=== PATIENT | male | born 1965 | race Caucasian/White ===

== ENCOUNTER 2024-04-04 10:53 | Inpatient (IN) ==
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
[2024-04-04 11:41] LABS: Basophils # (auto) 0.02 K/uL (0.00-0.20); Basophils % (auto) 0.2 %; Eosinophils # (auto) 0.09 K/uL (0.00-0.50); Eosinophils % (auto) 0.9 %; Hematocrit (blood only) 41.8 % (42.0-52.0); Hemoglobin 13.8 g/dl (14.0-18.0); Immature Granulocytes # (auto) 0.05 K/uL (0.01-0.20); Immature Granulocytes % (auto) 0.5 %; Lymphocytes # (auto) 0.99 K/uL (1.20-3.40); Lymphocytes % (auto) 9.9 %; Mean Corpuscular Hemoglobin 30.4 pg (25.0-34.0); Mean Corpuscular Volume 92.1 fL (80.0-100.0); Mean Platelet Volume 8.8 fL (9.4-12.4); Monocytes # (auto) 0.55 K/uL (0.11-0.59); Monocytes % (auto) 5.5 %; Neutrophils # (auto) 8.26 K/uL (1.40-6.50); Platelet Count 278 K/uL (130-400); RDW Coefficient of Variation 12.7 % (11.5-14.5); RDW Standard Deviation 42.8 fL (36.4-46.3); Red Blood Count 4.54 M/uL (4.70-6.10); White Blood Count 9.96 K/ul (4.8-10.8)
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
[2024-04-04 12:03] LABS: Alanine Aminotransferase 38 U/L (7-52); Albumin Globulin Ratio 1.8 (0.9-2); Albumin Level 4.1 gm/dl (3.4-5.0); Alkaline Phosphatase 78 U/L (34-104); Anion Gap 6 (3-11); Aspartate Aminotransferase 32 U/L (13-39); BUN Creatinine Ratio 25.3 (10-20); Bilirubin,Total 0.8 mg/dl (0.2-1.0); Blood Urea Nitrogen 19 mg/dl (6-23); Calcium 8.7 mg/dl (8.6-10.3); Carbon Dioxide 27 mmol/L (21-32); Chloride 108 mmol/L (98-107); Globulin 2.3 gm/dl (2.5-4.0); Glucose 95 mg/dl (70-99(Fasting)); Potassium 4.1 mmol/L (3.5-5.1); Sodium 141 mmol/L (136-145); Total Protein 6.4 gm/dl (6.0-8.3)
[2024-04-04] MEDS: DIPHTHER/TETAN/PERTUS Vaccine (Tdap, Adol/Adult) 0.5mL IM ONE (12:03)
[2024-04-04] MEDS: ceFAZolin 3000MG 3,000 MG/72.5 ML BAG IV STA (12:51)
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
[2024-04-04] MEDS ORDERED: MIDAZOLAM HCL 1 MG/ML 2ML VIAL ONE (13:38)
[2024-04-04] MEDS ORDERED: LIDOCAINE 2% 20 MG/ML 5 ML SYR IV ONE (13:38)
[2024-04-04] MEDS ORDERED: fentaNYL citrate PF 100 MCG/2 ML VIAL ONE (13:38)
[2024-04-04] MEDS ORDERED: PROPOFOL IV EMULSION 10 MG/ML 20 ML VIAL IV ONE (13:38)
[2024-04-04] MEDS ORDERED: SUCCINYLCHOLINE CHLORIDE 20 MG/ML 10 ML VIAL IV ONE (13:39)
--- NOTE | 2024-04-04 13:52 | Anesthesiology Consultation ---
Date of Service April 04, 2024 Assessment & Plan ASA ASA2E Proposed Anesthesia Anesthesia Type: General Risk / Benefits Reviewed With: PT / POA / Parent / Guardian, Accepts Plan and Informed Consent Obtained History Surgery Operation Date: 04/04/24 12:55 Proposed Procedures p Incision and Drainage Right Foot, - Steve Santos MD s Possible Toe Amputation - Steve Santos MD Height/Weight Height: 5 ft 10 in Weight: 106.7 kg Allergies Allergy/AdvReac Type Severity Reaction Status Date / Time No Known Drug Allergies Allergy Verified 03/24/24 07:47 Medications Home Medications Medication Instructions Recorded Confirmed Last Taken atorvastatin 10 mg tablet (Lipitor) 10 mg PO DAILY 03/24/24 03/24/24 Unknown NPO Date Last Intake of Fluids: 04/04/24 Time Last Intake of Fluids: 07:30 Date Last Intake of Solids: 04/04/24 Time Last Intake of Solids: 07:30 Past Medical History Medical History (Updated 04/04/24 @ 13:12 by Steve Santos MD) Rotator cuff arthropathy Thoracic ascending aortic aneurysm Hyperlipidemia Exercise / Class Metabolic Activity II 4-5 Yardwork/Stairs/Walk up hill Past Family History Family History (Updated 03/24/24 @ 08:24 by Faiza Robbins RN) Father , Passed age 62 Lung cancer, Onset Age: 60 Radiation Therapy Mother Lung cancer, Onset Age: 63 Chemotherapy, Radiation Therapy Sister No problems noted. Sister No problems noted. Son No problems noted. Son No problems noted. Son No problems noted. Past Surgical History Surgical History (Updated 03/24/24 @ 08:19 by Faiza Robbins RN) History of prostate biopsy (02/16/24) History of colonoscopy (06/28/18) Past Anesthesia History No Hx of Anesthesia Complications and No Family Hx of Anesthesia Complications History of PONV No Hx of PONV and No Hx of Motion Sickness Social History Smoking Status: Never smoker Do You Dip or Chew Tobacco: Yes (Started 14 to current, switched to pouches) Hx Alcohol Use: Yes Hx Substance Use: No Physical Exam Vital Signs Last Vital Signs Temp 36.6 C 04/04/24 11:07 Pulse 71 04/04/24 13:41 Resp 19 04/04/24 13:41 BP 151/83 H 04/04/24 13:41 Pulse Ox 97 04/04/24 13:41 O2 Del Method Room Air 04/04/24 13:41 O2 Flow Rate 97 04/04/24 11:19 Constitutional no acute distress ENMT Mouth: no dentition abnormality Thyromental Distance: > or= 3.5 Finger Breadths Mallampati Class: II Neck normal visual inspection Respiratory normal respiratory effort; no respiratory distress Auscultation: lungs clear to auscultation bilaterally Cardiovascular Rate/Rhythm: regular rate and regular rhythm Heart Sounds: no murmur Musculoskeletal Spine: normal cervical ROM Psychiatric Orientation: alert and oriented x 3 Testing Laboratory Results 04/04/24 11:15 04/04/24 11:15 Day of Procedure Evaluation. Date of Surgery April 04, 2024 Height/Weight Height: 5 ft 10 in Weight: 106.7 kg Vital Signs Last Vital Signs Temp 36.6 C 04/04/24 11:07 Pulse 71 04/04/24 13:41 Resp 19 04/04/24 13:41 BP 151/83 H 04/04/24 13:41 Pulse Ox 97 04/04/24 13:41 O2 Del Method Room Air 04/04/24 13:41 O2 Flow Rate 97 04/04/24 11:19 Allergies Allergy/AdvReac Type Severity Reaction Status Date / Time No Known Drug Allergies Allergy Verified 03/24/24 07:47 Medications Home Medications Medication Instructions Recorded Confirmed Last Taken atorvastatin 10 mg tablet (Lipitor) 10 mg PO DAILY 03/24/24 03/24/24 Unknown Past Anesthesia History No Hx of Anesthesia Complications and No Family Hx of Anesthesia Complications History of PONV No Hx of PONV and No Hx of Motion Sickness NPO Date Last Intake of Fluids: 04/04/24 Time Last Intake of Fluids: 07:30 Date Last Intake of Solids: 04/04/24 Time Last Intake of Solids: 07:30 Home Medications Home Medications Medication Instructions Recorded Confirmed Last Taken atorvastatin 10 mg tablet (Lipitor) 10 mg PO DAILY 03/24/24 03/24/24 Unknown Exercise / Class Metabolic Activity Metabolic Activity: II 4-5 Yardwork/Stairs/Walk up hill Physical Exam Constitutional: no acute distress Mouth: no dentition abnormality Thyromental Distance: > or= 3.5 Finger Breadths Mallampati Class: II Neck: + visual inspection normal Respiratory: + respiratory effort normal and + clear to auscultation bilaterally; no respiratory distress Cardiovascular: + regular rate and + regular rhythm; no murmur Musculoskeletal: no limited cervical ROM Psychiatric: + alert and + oriented x 3 ASA ASA2E Proposed Anesthesia Proposed Anesthesia: General Risk / Benefits Reviewed With: PT / POA / Parent / Guardian, Accepts Plan and Informed Consent Obtained
[2024-04-04] MEDS ORDERED: ePHEDrine sulfate 50 MG/ML AMP IV PRN (14:16)
[2024-04-04] MEDS ORDERED: DROPERIDOL 5 MG/2 ML VIAL IV PRN (14:16)
[2024-04-04] MEDS ORDERED: ATROPINE SULFATE 0.1 MG/ML 10ML SYR IV PRN (14:16)
[2024-04-04] MEDS ORDERED: HYDROmorphone INJ 2 MG/ML SYR/VIAL IV PRN (14:16)
[2024-04-04] MEDS ORDERED: ONDANSETRON INJ 2 MG/ML 2 ML VIAL IV PRN ×2 (14:16→16:52)
[2024-04-04] MEDS ORDERED: ceFAZolin 330 MG/ML 1 GM VIAL ONE (14:56)
[2024-04-04] MEDS: ceFAZolin 1000MG 1,000 MG/7.5 ML SYR IV ONE (15:00)
[2024-04-04] MEDS ORDERED: HYDROmorphone INJ 2 MG/ML SYR/VIAL ONE (15:01)
[2024-04-04] MEDS ORDERED: ONDANSETRON INJ 2 MG/ML 2 ML VIAL ONE (15:19)
[2024-04-04] MEDS: BUPIVACAINE/EPINEPHRINE 0.5% MPF 1:200,000 30 ML VIAL ONE (15:23)
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
--- NOTE | 2024-04-04 16:30 | Anesthesiology Progress Note ---
Date of Service April 04, 2024 Anesthesia Post Procedure Vital Signs Vital Signs: Temp Pulse Pulse Resp BP BP Pulse Ox 04/04/24 16:25 68 14 117/71 93 04/04/24 16:15 69 17 134/76 94 04/04/24 16:05 36.7 C 70 21 113/67 94 04/04/24 15:55 74 17 146/91 H 96 04/04/24 15:45 76 17 145/84 H 98 04/04/24 15:38 36.0 C L 70 12 129/72 91 04/04/24 14:06 36.7 C 70 17 123/81 97 04/04/24 13:41 71 19 151/83 H 97 04/04/24 12:30 74 19 162/98 H 98 04/04/24 12:26 73 04/04/24 12:18 71 18 144/94 H 97 04/04/24 12:09 74 16 147/96 H 98 04/04/24 11:20 98 04/04/24 11:19 82 20 160/90 H 97 04/04/24 11:19 97 04/04/24 11:18 74 20 160/90 H 98 04/04/24 11:07 36.6 C 78 18 163/100 H 97 O2 Del Method O2 Flow Rate 04/04/24 16:25 Room Air 04/04/24 16:15 Room Air 04/04/24 16:05 Room Air 04/04/24 15:55 Nasal Cannula 2 04/04/24 15:45 Nasal Cannula 2 04/04/24 15:38 Nasal Cannula 04/04/24 14:06 Room Air 04/04/24 13:41 Room Air 04/04/24 12:30 Room Air 04/04/24 12:26 04/04/24 12:18 Room Air 04/04/24 12:09 Room Air 04/04/24 11:20 Room Air 04/04/24 11:19 Room Air 97 04/04/24 11:19 Room Air 04/04/24 11:18 Room Air 04/04/24 11:07 Room Air Pain Intensity Right Foot: Pain Intensity: 1 Transfer of Care Handoff Completed per policy Notes Mental Status: alert / awake / arousable Patient Amnestic to Procedure: Yes Nausea / Vomiting: adequately controlled Pain: adequately controlled Airway Patency, RR, SpO2: stable & adequate BP & HR: stable & adequate Hydration State: stable & adequate Anesthetic Complications: no major complications apparent and Pt Satisfied with anesthetic care
[2024-04-04] MEDS ORDERED: HYDROmorphone INJ 0.5 MG/0.5 ML SYR IV PRN (16:52)
[2024-04-04] MEDS ORDERED: METOCLOPRAMIDE HCL INJ 5 MG/ML 2 ML VIAL IV PRN (16:52)
[2024-04-04] MEDS ORDERED: bisacodyL 10 MG SUPP PR PRN (16:52)
[2024-04-04] MEDS ORDERED: diphenhydrAMINE Capsule 25 MG CAP PO PRN (16:52)
[2024-04-04] MEDS ORDERED: traMADol HCL 50 MG TABLET PO PRN (16:52)
[2024-04-04] MEDS ORDERED: TAMSULOSIN HCL 0.4 MG CAP PO PRN (16:52)
[2024-04-04] MEDS ORDERED: NALOXONE HCL 0.4 MG/1 ML VIAL/CARP IV PRN (16:52)
[2024-04-04] MEDS ORDERED: MAGNESIUM HYDROXIDE SUSP 30 ML UDC PO PRN (16:52)
[2024-04-04] MEDS: KETOROLAC 30 MG/ML VIAL IV SCH (17:06)
[2024-04-04] MEDS: BACITRACIN OINT 14 GM TUBE ONE (18:02)
[2024-04-04] MEDS: ASPIRIN 81 MG ECTAB PO SCH (20:41)
[2024-04-04] MEDS: DOCUSATE SODIUM 100 MG CAP PO SCH (20:42)
[2024-04-04] MEDS: SENNA 8.6 MG TAB PO SCH (20:43)
--- OUTSIDE RECORDS SUMMARY | 2024-04-04 21:31 | External Medical Summary | Summary of Care ---
Author Name Unknown Organization [facility] Address [address] [place] [address] Phone [phone] Care Team Providers Care Board Certified Music Therapist Name Role Phone Jolanta Morris MD Primary Care Provider [phone] Reason for Referral * Evaluate & Treat - Unlimited Visits (Within 10 days (routine)) - Authorized Specialty Diagnoses / Procedures Referred By Contac t Referred To Contact Radiation Oncology Diagnoses Prostate cancer (HCC) Monica Osei MD [address] [address] Referral ID Status Reason Start Date Expiration Date Visits Requested Visits Authorized [id number] Authorized Specialty Services Required 03/09/[phone] Question Answer Referral Priority Within 10 days (routine) Where should this appointment be scheduled? [facility] Comments New diagnosis of [place] 4+3 CAP, PSA 16 Reason for Visit * Reason Comments Follow Up PSMA results (03/03) . Encounter Details Date Type Department Care Team (Late st Contact Info) Description 03/09/2024 11:30 AM EST Office Visit Urology, [facility] [address] [facility] [address] [id number] Monica Osei MD [address] [id number] Prostate cancer (HCC)*; Elevated prostate specific antigen (PSA) Allergies No known active allergiesdocumented as of this encounter (statuses as of 03/10/2024) Medications Medication Sig Dispensed Refills Start Date End Date Status Triamcinolone Acetonide 0.1 % External Cream (Aristocort)Indic ations:Rash and nonspecific skin eruption Apply topically to affected area 2 times a day. To affected area. 60 g 5 07/28/2022 Active Additional Information Patient not taking.Reported on 03/09/2024 Atorvastatin Calcium 10 MG Oral Tablet (Lipitor) Take 1 Tablet by mouth in the morning. 30 Tablet 5 09/21/2023 Active Ciprofloxacin HCl 500 MG Oral Tablet (Cipro) Take 1 Tablet by mouth in the morning and 1 Tablet before bedtime. Start day prior to biopsy.. 6 Tablet 02/11/2024 Discontinued documented as of this encounter (statuses as of 03/10/2024) Active Problems Problem Noted Date Diagnosed Date Prostate cancer 03/09/2024 Asymptomatic varicose veins of both lower extrem ities 01/01/2024 Class 1 obesity due to exces s calories with serious comorbidity and body mass index (BMI) of 31.0 to 31.9 in adult 09/11/2023 Rotator cuff arthropathy of both shoulders 09/10 Thoracic ascending aortic aneurysm 09/02/2021 H/O dysplastic nevus 09/06/2020 Overview: Mildly atypical nevus (R central upper back 09/2020) Mixed hyperlipidemia 05/09/2019 documented as of this encounter (statuses as of 03/10/2024) Resolved Problems Problem Noted Date Diagnosed Date Resolved Date Aortic root enlargement 10/13/2018 04/2 12/2020 documented as of this encounter (statuses as of 03/10/2024) Immunizations Name Administration Dates Next Due Seasonal Influenza, PF, 6 M & above, IM , (FluLaval or Fluzone) 05/09/2019 TDAP (age 10 and older)(Boostrix) 05/05/2018 Zoster Vaccine Recombinant (Shingrix) 07/26/2019 ,05/09/2019 documented as of this encounter Social History Tobacco Use Types Packs/Day Years Used Date Smoking Tobacco: Never Smokeless Tobacco: Current Chew Alcohol Use Standard Drinks/Week Comments Yes 0 (1 standard drink = 0.6 oz pur e alcohol) beer approx 3 times per week AUDIT-C Answer Date Recorded Frequency of Alcohol Consumption 2-3 times a wee k 05/09/2019 Average Number of Drinks 3 or 4 020 Frequency of Binge Drinking Never 10/2019 PHQ-2 Answer Date Recorded PHQ Adult Total Score 0 09/02/2021 Hunger Vital Sign Answer Date Recorded Worried About Running Out of Food in the Last Ye ar Never true 10/07/2019 Ran Out of Food in the Last Year Never true 10/07/2019 Utilities Answer Date Recorded Do you have trouble paying y our heating, water, or electric bill? (Adult - for ages 18 years and over) Not on file 10/20/2023 Is your family able to pay t he heat, water, or electric bill? (Household - for ages 0-17 years) Not on file 10/20/2023 Does your family have access to good internet? (Household - for ages 0-17 years) Not on file 10/20/2023 Social Connections Answer Date Recorded How often do you feel lonely or isolated from those around you? (Adult - for ages 18 years and over) Not on file 10/20/2023 Sex and Gender Information Value Date Recorded Sex Assigned at Male 09/15/2018 2:54 PM EDT Gender Identity Male 09/15/2018 2:54 PM EDT Sexual Orientation Straight 09/15/2018 2: 54 PM EDT Job Start Date Occupation Industry Not on file Not on file Not on file documented as of this encounter Progress Notes * Monica Osei MD - 03/09/2024 11:42 AM EST Images from the original note were not included. [id number] PCP: [place] [address] [phone] Anthony Beebe is a 58 year old male, who presents for discussion of his prostate biopsy pathology and imaging studies. Patient's past notes reviewed. Previous prostate MRI suggested a PI-RADS 5 lesion. He is here with his sister and [id number]. Patient is somewhat anxious regarding his difficulties. Prostate cancer: Patient is being seen for evaluation of an elevated PSA. Previous evaluation includes referral to Urology. Patient has been on no medication. He reports postvoid dribbling, slow stream. Denies nocturia. Prostate MRI Feb 2024: IMPRESSION Tumor (PI-RADS 5) within the posterolateral peripheral zone of the entire right side of the gland. Extraprostatic extension is seen along the lateral aspect of the right mid gland and right base withextension into the right seminal vesicle PSA Results: Lab Results Component Value Date/Time PSA - [facility] 16.39 (H) 01/01/2024 08:32 AM PSMA scan February 2024: IMPRESSION 1. Focal uptake in the right posterior prostate apex consistent with biopsy- proven malignancy. 2. No evidence of metastatic disease. Prostate biopsy Feb 2024: Final Diagnosis Prostate Biopsy Part Location Core # Core (cm) Diagnosis [place] Grade Group PN inv % [employer] A Left base 2 2.6 Benign prostatic tissue B Left mid 3 2.7 Benign prostatic tissue C Left apex 4 3.1 Atypical small acinar proliferation D Right base 3 3.9 Prostatic adenocarcinoma involving 3 of 3 cores 4+3=7 (4=80%) 3 + 70%, 70%, 20% E Right mid 3 4.2 Prostatic adenocarcinoma involving 3 of 3 cores 4+3=7 (4=70%) 3 - 90%, 50%, 40% F Right apex 3 3.1 Prostatic adenocarcinoma involving 2 of 3 cores 3+4=7 (4=30%) 2 - 30%, 20% CORES with CARCINOMA = Current Outpatient Medications Medication Sig Dispense Refill Atorvastatin Calcium 10 MG Oral Tablet (Lipitor) Take 1 Tablet by mouth in the morning. 30 Tablet 5 Triamcinolone Acetonide 0.1 % External Cream (Aristocort) Apply topically to affected area 2 times a day. To affected area. (Patient not taking: Reported on 03/09/2024) 60 g 5 No current facility-administered medications for this visit. Review of patient's allergies indicates: No Known Allergies Social History: Social History Tobacco Use Smoking status: Never Smokeless tobacco: Current Types: Chew Substance Use Topics Alcohol use: Yes Comment: beer approx 3 times per week Vaping/E-Cigarette Use Vaping/E-Cigarette Substances Vaping/E-Cigarette Devices Family History Problem Relation Name Age of Onset Lung cancer Mother Hypertension Mother COPD Mother Heart disease Mother Lung cancer Father COPD Sister No Known Problems Sister Colon cancer Grandfather (Paternal) Past Surgical History: Procedure Laterality Date COLONOSCOPY, DIAGNOSTIC (RECTUM) 06/28/2018 diverticulosis, repeat 10 yrs/COLONOSCOPY FLEXIBLE PROXIMAL DIAGNOSTIC performed by Wallace Shine MD at [facility] Past Medical History: Diagnosis Date Aortic root enlargement (HCC) 10/13/2018 Patient Active Problem List Diagnosis Mixed hyperlipidemia H/O dysplastic nevus Thoracic ascending aortic aneurysm (HCC) Class 1 obesity due to excess calories with serious comorbidity and body mass index (BMI) of 31.0 to 31.9 in adult Rotator cuff arthropathy of both shoulders Asymptomatic varicose veins of both lower extremities Prostate cancer (HCC) Constitutional: (-) fever and (-) chills Eyes: (-) decreased vision Male : See HPI Musculoskeletal: (+) shoulder pain/problems Psychiatry: (+) anxiousness Physical Exam Nursing note reviewed. Constitutional: General: He is not in acute distress. Appearance: Normal appearance. He is not toxic-appearing. HENT: Head: Normocephalic and atraumatic. Right Ear: External ear normal. Left Ear: External ear normal. Nose: Nose normal. Mouth/Throat: Mouth: Mucous membranes are moist. Cardiovascular: Pulses: Normal pulses. Pulmonary: Effort: Pulmonary effort is normal. Abdominal: Palpations: Abdomen is soft. Tenderness: There is no abdominal tenderness. Musculoskeletal: Cervical back: Normal range of motion and neck supple. Lymphadenopathy: Cervical: No cervical adenopathy. Skin: Coloration: Skin is not cyanotic or pale. Neurological: Mental Status: He is alert and oriented to person, place, and time. Psychiatric: Attention and Perception: Attention normal. Mood and Affect: Mood and affect normal. Impression/Plan: 58-year-old male with cT3b (MRI) Ol[place] 4+3 CAP, pre-treatment PSA of 16. Lengthy discussion held with patient and patient's family today regarding his diagnosis of prostatecancer. [place] grading system, staging, need for imaging and pathophysiology of prostate cancer reviewed. Risks and benefits of various treatment modalities including active surveillance, radical prostatectomy including robotic and open prostatectomy, and radiation treatment modalities including external beam radiation therapy and brachytherapy implant are reviewed. Questions are answered and patient is guided toward sources of information which might be helpful. NCCN guidelines reviewed at length. 75 minutes spent in [id number] discussion, guideline review, charting review and documentation over the course of this business day. I think the patient would likely benefit from radical prostatectomy with the ability to proceed with salvage radiation therapy should there be residual disease. Will arrange for Radiation Oncology consultation for further discussion. Will see 6-8 weeks time for repeat discussion of his care. Patient can contact us with any further questions in the interim. Above content is personally reviewed. Patient vocalizes good understanding of the treatment plan. Monica Osei MD 11:42 AM 03/09/2024 documented in this encounter Nursing Notes * Deysi Suero MED ASSIST - 03/09/2024 11:24 AM EST Chief Complaint Patient presents with Follow Up PSMA results (03/03). Verified patient. documented in this encounter Miscellaneous Notes * Addendum Note - Monica Osei MD - 03/10/2024 9:31 AM ESTAddended by: MONICA OSEI on: 03/10/2024 09:31 AM Modules accepted: Orders documented in this encounter Plan of Treatment Upcoming Encounters Date Type Department Care Team (Late st Contact Info) Description 05/16/2024 3:15 PM EST Office Visit Urology, [facility] [address] [id number] Monica Osei MD [address] [id number] 05/24/2024 9:00 AM EST Office Visit Orthopaedics [facility] [address] [address] Rhianna Montes MD [address] [address] 09/19/2024 7:40 AM EDT Office Visit [facility] [address] [place] [address] Jolanta Morris MD [address] [facility] [place] [address] Scheduled Procedures Name Priority Associated Diagnoses Date/Ti me ROBOTIC LAPAROSCOPIC PROSTAT ECTOMY RETROPUBIC RADICAL Prostate cancer (HCC) ROBOTIC PROSTATECTOMY RETROP UBIC WITH PELVIC LYMPHADENECTOMY Prostate cancer (HCC) COLONOSCOPY FLEXIBLE PROXIMA L DIAGNOSTIC Recall Special screening for malignant neoplasm of colon Scheduled Referrals Name Type Priority Associated Diagnoses Orde r Schedule RADIATION/ONCOLOGY REFERRAL OP Referral Within 10 days (routine) Prostate cancer (HCC) Ordered: 03/09/2024 Health Maintenance Due Date Last Done Comments HIV Screening 1980 Hepatitis C Screening 08/20/1983 Hepatitis B Vaccine (1 of 3 - 19+ 3-dose series) 1984 Cologuard 2010 Fecal Occult Blood Test 2010 Sigmoidoscopy 2010 Depression Screening 09/02/2022 09/02/2021 COVID-19 Vaccine ( - season) 2024 Influenza Vaccine (FLU shot) (#1) 2024 05/09/2019 Diabetes Screening 09/10/2026 09/11/2023, 0 09/11/2023, 09/10/2022, Additional history exists DTap/Tdap Vaccines (2 - Td or Tdap) 05/05/2028 05/05/2018 Colonoscopy 06/28/2028 06/28/2018, 06/28/2018 Colorectal Cancer Screening 06/28/2028 Lipid Panel 09/10/2028 09/11/2023, 09/01, 05/09/2019, Additional history exists Zoster Vaccines Completed 07/26/2019, 05/09/2019 HPV (Gardasil) Vaccine Aged Out No lo nger eligible based on patient's age to complete this topic MENINGOCOCCAL (MENACTRA/MENVEO) Aged Out No longer eligible based on patient's age to complete this topic Pneumococcal Vaccine: Pediatrics (0 to 5 Years) and At-Risk Patients (6 to 64 Years) Aged Out No longer eligible based on patient's age to complete this topic documented as of this encounter Medical Devices Not on filedocumented as of this encounter Visit Diagnoses Diagnosis Prostate cancer (HCC)- Primary Malignant neoplasm of prostate Elevated prostate specific antigen (PSA) documented in this encounter Care Teams Board Certified Music Therapist Relationship Specialty Start Date End Date Jolanta Morris MD [address] [place] [address] PCP - General Family Medicine 09/11/23 documented as of this encounter
--- OUTSIDE RECORDS SUMMARY | 2024-04-04 21:31 | External Medical Summary | Summary of Care ---
Author Name Unknown Organization [facility] Address [address] [place] [address] Phone [phone] Care Team Providers Care Supervisor Seaming Name Role Phone Jolanta Roe MD Primary Care Provider [phone] Encounter Details Date Type Department Care Team (Late st Contact Info) Description 02/16/2024 1:00 PM EDT Office Visit Urology, [facility] 132 [facility] [place] [id number] Daniel Osei MD 27 [facility] [place] [phone] Elevated prostate specific antigen (PSA)* Allergies No known active allergiesdocumented as of this encounter (statuses as of 03/29/2024) Medications Triamcinolone Acetonide 0.1 % External Cream (Aristocort)Ind ications:Rash and nonspecific skin eruption Apply topically to affected area 2 times a day. To affected area. 60 g 5 07/29/19 23 Active Atorvastatin Calcium 10 MG Oral Tablet (Lipitor) Take 1 Tablet by mouth in the morning. 30 Tablet 5 09/21/19 24 Active Ciprofloxacin HCl 500 MG Oral Tablet (Cipro) Take 1 Tablet by mouth in the morning and 1 Tablet before bedtime. Start day prior to biopsy.. 6 Tablet 02/11/20 24 024 Discontinued documented as of this encounter (statuses as of 03/29/2024) Active Problems Problem Noted Date Diagnosed Date Asymptomatic varicose veins of both lower extrem ities 01/01/2024 Class 1 obesity due to exces s calories with serious comorbidity and body mass index (BMI) of 31.0 to 31.9 in adult 09/11/2023 Rotator cuff arthropathy of both shoulders 09/10 Thoracic ascending aortic aneurysm 09/02/2021 H/O dysplastic nevus 09/06/2020 Overview (09/06/2020): Mildly atypical nevus (R central upper back 09/2020) Mixed hyperlipidemia 05/09/2019 documented as of this encounter (statuses as of 03/29/2024) Resolved Problems Problem Noted Date Diagnosed Date Resolved Date Aortic root enlargement 10/13/201808/03 documented as of this encounter (statuses as of 03/29/2024) Immunizations Name Administration Dates Next Due Seasonal [...] in the Last Year Never true 10/07/2019 Sex and Gender Information Value Date Recorded Sex Assigned at Male 09/15/2018 2:54 PM EDT Legal Sex Male 5:57 AM EST Gender Identity Male 09/15/2018 2:54 PM EDT Sexual Orientation Straight 09/15/2018 2: 54 PM EDT documented as of this encounter Progress Notes * Daniel Osei MD - 02/16/2024 12:55 PM EDT 58 yo male here for prostate biopsy for elevated PSA. PI-RADS 5 lesion on MRI is appreciated. Elevated PSA: Patient is being seen for evaluation of an elevated PSA. Previous evaluation includes referral to Urology. Patient has been on no medication. He reports postvoid dribbling, slow stream. Denies nocturia. PSA Results: Lab Results Component Value Date/Time PSA - BRYANER 16.39 (H) 01/01/2024 08:32 AM Prostate MRI Feb 2024: IMPRESSION Tumor (PI-RADS 5) within the posterolateral peripheral zone of the entire right side of the gland. Extraprostatic extension is seen along the lateral aspect of the right mid gland and right base withextension into the right seminal vesicle Urology Procedure Note Patient presents for transrectal ultrasound and prostate needle biopsy due to Elevated PSA. He understands risks of bleeding, infection, and urinary retention and did take oral antibiotic prior to procedure as instructed. The ultrasound probe was placed per rectum to view and measure the prostate. Please see the below TRUS interpretation report for details. Trans-Rectal Ultrasound Interpretation Report: We used the [employer] ultrasound unit with end fire rectal probe to perform real time ultrasound imaging of the prostate. The prostate is measured in bothaxial and longitudinal planes. 19.5 centimeters height by 45.1 centimeters width, by 43.3 centimeters longitudinal length (approximate total volume 19.93 cubic centimeters) PSA density is 0.822. Transition zone is isoechoic. There is no median adenoma. Seminal vesicles are normal bilaterally. The peripheral zone shows a hypoechoic area on the right mid prostate and base consistent with MRI findings. There are no anechoiclesions. The prostate margins are smooth and uniform, but more poorly defined in the area of involvement. The rectal wall is thin and unremarkable. The visualized bladder base shows a bladder wall of normal thickness. There is a moderate amount of residual urine present. Impression: Small prostate with a right prostatic lesion, PI-RADS 5 on MRI. Prostate needle biopsy: Ultrasound guidance was used for the placement of the needle to perform theprostate biopsies. A periprostatic block was performed with 10 mL 2% plain lidocaine in the usual fashion. Using transrectal real time ultrasound guidance, 14 core biopsies of the prostate were obtained without apparent bleeding. Two biopsies were taken from 6 sextants in the usual fashion (left and right base, midprostate and apex). Extra cores were taken from the right mid prostate and right base in the region ofinterest. Inadequate cores were repeated. All biopsy specimens were sent to pathology for formal evaluation. The patient tolerated the procedure well and ambulated independently to the waiting room. Post biopsy instructions including light activity for the next 2 days and expected post biopsy course including hematuria, blood in the stool and semen are reviewed. He is to complete his antibiotic prophylaxis as prescribed. Worrisome signs and symptoms including fevers, chills, nausea, vomiting and the ability to void are reviewed and should prompt acute evaluation by a physician or ER. Patient should contact us before his follow-up with any questions or concerns. We will discuss his biopsy results at his follow up visit, which is confirmed today. Daniel Osei MD 12:56 PM 02/16/2024 documented in this encounter Plan of Treatment Upcoming Encounters Date Type Department Care Team (Latest Contact Info) Description 05/16/2024 3:15 PM EST Office Visit Urology, [facility] [address] [place] [address] Daniel Osei MD 27 [place] [address] 05/24/2024 9:00 AM EST Office Visit Orthopaedics [facility] 132 [place] [address] Rhianna Montes MD 132 [place] [address] 06/23/2024 7:30 AM EST Hospital Encounter OR [facility], Operating Room, [facility] - 4th Floor 400 [facility] [place] [address] Daniel Osei MD 27 [place] [address] 06/23/2024 7:30 AM EST - 06/23/2024 12:27 PM EST Surgery OR [facility], Operating Room, [facility]th [facility] [address] Daniel Osei MD [address] [place] [address] ROBOTIC LAPAROSCOPIC PROSTATECTOMY RETROPUBIC RADICAL 09/19/2024 7:40 AM EDT Office Visit Family Practice [facility] [address] [facility] [place] [address] Jolanta Roe MD 200 [facility] [place] [address] Pending Results Name Type Priority Associated Diagnoses Date /Time DECIPHER PROSTATE RP POST OP Lab Routine Elevated prostate specific antigen (PSA) 03/28/2024 11:05 AM EST Scheduled Orders Name Type Priority Associated Diagnoses Orde r Schedule NEEDLE/PUNCH BIOPSY OF PROSTATE Procedures Routine Elevated prostate specific antigen (PSA) Ordered: 02/16/2024 US ECHO TRANSRECTAL/PROSTATE Medical Imaging Routine Elevated prostate specific antigen (PSA) Expected: 02/16/2024, Expires: 03/18/2025 US GUIDE NEEDLE PROSTATE BX Medical Imaging Routine Elevated prostate specific antigen (PSA) Expected: 02/16/2024, Expires: 03/18/2025 Scheduled Procedures Name Priority Associated Diagnoses Date/Ti me ROBOTIC LAPAROSCOPIC PROSTATECTOMY RETROPUBIC RADICAL Prostate cancer (HCC) 06/23/2024 7:30 AM EST ROBOTIC PROSTATECTOMY RETROPUBIC WITH PELVIC LYMPHADENECTOMY Prostate cancer (HCC) COLONOSCOPY FLEXIBLE PROXIMA L DIAGNOSTIC Recall Special screening for malignant neoplasm of colon Health Maintenance Due Date Last Done Comments HIV Screening 1980 Hepatitis C Screening 08/20/1983 Hepatitis B Vaccine (1 of 3 - 19+ 3-dose series) 1984 Cologuard 2010 Fecal Occult Blood Test 2010 Sigmoidoscopy 2010 Depression Screening 09/02/2022 09/02/2021 COVID-19 Vaccine ( season) 2024 Influenza Vaccine (FLU shot) (#1) [...] Not on filedocumented as of this encounter Procedures Procedure Name Priority Date/Time Associated Diagnosis Comments SURGICAL PATHOLOGY Routine 02/16/2024 1: 59 PM EDT Elevated prostate specific antigen (PSA) documented in this encounter Results * SURGICAL PATHOLOGY (02/16/2024 1:59 PM EDT) Final Diagnosis Prostate Biopsy Part Location Core # Core (cm) Diagnosis Olga Grade Group PN inv % PATTERN ROOM ATTENDANT A Left base 2 2.6 Benign prostatic [...] - 30%, 20% CORES with CARCINOMA = *PATTERN ROOM ATTENDANT = Prostate Carcinoma *Core = total length of cores submitted *PN inv = Perineural Invasion *HGPIN = High grade prostatic intraepithelial neoplasia *Grade group 1: Olga Score <= 6 *Grade group 2: Pillager score 3+4=7 *Grade group 3: Olga score 4+3=7 *Grade group 4: Olga score 8 *Grade group 5: Olga score 9-10 Reference: Aba PM, Sharad PC, Josselyn AW, Cynthia JL. Prognostic Pillager grade grouping: data based on the modified Pillager scoring system. BJU Int. 2013:111:753-760. 02/18/2024 11:25 AM EDT [facility] Clinical History elevated psa 02/18/2024 11:25 AM EDT [facility] Gross Description A. Prostate. Received in formalin with a container labeled with "Anthony S Stanford", "[id number]", "1965" and " left base". Received is 2 donohue-white core(s) of soft tissue measuring 2.6 cm in total length which is entirely submitted in A1. Gross By: MD Lawson Prostate. Received in formalin with a container labeled with "Anthony S Stanford", "[id number]", "1965" and " left mid". Received is 3 donohue-white core(s) of soft tissue measuring 2.7 cm in total length which is entirely submitted in B1. Gross By: MD Kwon Prostate. Received in formalin with a container labeled with "Anthony S Stanford", "[id number]", "1965" and " left apex". Received is 4 donohue-white core(s) of soft tissue measuring 3.1 cm in total length which is entirely submitted in C1. Gross By: MD Fournier Prostate. Received in formalin with a container labeled with "Anthony S Stanford", "[id number]", "1965" and " right base". Received is 3 donohue-white core(s) of soft tissue measuring 3.9 cm in total length which is entirely submitted in D1. Gross By: MD Mendenhall Prostate. Received in formalin with a container labeled with "Anthony S Stanford", "[id number]", "1965" and " right mid". Received is 3 donohue-white core(s) of soft tissue measuring 4.2 cm in total length which is entirely submitted in E1. Gross By: MD Jones Prostate. Received in formalin with a container labeled with "Anthony Beebe", "[id number]", "1965" and " right apex". Received is3 donohue-white core(s) of soft tissue measuring 3.1 cm in total length which is entirely submitted in F1. Gross By: 02/18/2024 11:25 AM EDT LABORATORY [facility] Microscopic Description Microscopic examination performed 02/18/2024 11:25 AM EDT LABORATORY [facility] Sign Out Location Pathologist sign out performed at [facility] ([facility]), [address] [place] [id number]. 02/18/2024 11:25 AM EDT LABORATORY [facility] Photographic images and diagrams represent foss findings in this case; they are not intended to replace a complete review of the final diagnostic report. The following statement applies to Flow Cytometry, Histology, In situ Hybridization Assays and Molecular Genetics. This test was developed and performed at [facility] and its performance characteristics determined by [facility]. It has not been cleared or approved by the U.S. Food and Drug Administration. The FDA has determined that such clearance or approval is not necessary. This test is used for clinical purposes. It should not be regarded as investigational or for research. Special stains, including histochemical stains, and studies using immunologic and ESTHER methodology (where applicable) are performed with appropriate positive and negative control reactions. 02/18/2024 11:25 AM EDT LABORATORY [facility] Tissue Region of prostate / Unknown Non-blood Collection / Unknown 02/16/2024 1:59 PM EDT 02/16/2024 2:07 PM EDT Specimen from wound (specimen) Region of prostate / Unknown 02/16/2024 1:59 PM EDT 02/16/2024 2:07 PM EDT Specimen from wound (specimen) Region of prostate / Unknown 02/16/2024 1:59 PM EDT 02/16/2024 2:07 PM EDT Specimen from wound (specimen) Region of prostate / Unknown 02/16/2024 1:59 PM EDT 02/16/2024 2:07 PM EDT Specimen from wound (specimen) Region of prostate / Unknown 02/16/2024 1:59 PM EDT 02/16/2024 2:07 PM EDT Specimen from wound (specimen) Region of prostate / Unknown 02/16/2024 1:59 PM EDT 02/16/2024 2:07 PM EDT Daniel Osei MD LAB PATHOLOGY ORDERABLES Final Result Performing Organization Address City/State/[facility] Co de Phone Number LABORATORY [facility] [address] [place] [address] documented in this encounter Visit Diagnoses Diagnosis Elevated prostate specific antigen (PSA)- Primary Prostate cancer (HCC) Malignant neoplasm of prostate documented in this encounter Care Teams Supervisor Seaming Relationship Specialty Start Date End Date Jolanta Roe MD [address] [place] [address] [place] [address] PCP - General Family Medicine 09/11/23 documented as of this encounter
--- OUTSIDE RECORDS SUMMARY | 2024-04-04 21:31 | External Medical Summary | Summary of Care ---
Author Name Unknown Organization [facility] Address [address] [place] [address] Phone [phone] Care Team Providers Care Director Of Group Sales Name Role Phone Jolanta Roe MD Primary Care Provider [phone] Reason for Visit * Reason Onset Date Comments Imaging Records Request 03/10/2024 Encounter Details Date Type Department Care Team ([facility] st Contact Info) Description 03/10/2024 Telephone Radiology Film File [address] [place] [address] Support, Imaging Radiology [address] [place] [address] Imaging Records Request Allergies No known active allergiesdocumented as of this encounter (statuses as of 03/10/2024) Medications Medication Sig Dispensed Refills Start Date End Date Status Triamcinolone Acetonide 0.1 % External Cream (Aristocort)Indicat ions:Rash and nonspecific skin eruption Apply topically to affected area 2 times a day. To affected area. 60 g 5 07/28/2022 Active Additional Information Patient not taking.Reported on 03/09/2024 Atorvastatin Calcium 10 MG Oral Tablet (Lipitor) Take 1 Tablet by mouth in the morning. 30 Tablet 5 09/21/2023 Active documented as of this encounter (statuses as [...] on file documented as of this encounter Miscellaneous Notes * Telephone Encounter - Amaury Weiss, Epic Support - 03/10/2024 8:05 AM EST [facility] requesting 02-04-2024 to 03-03-2024 MR PROSTATE, PET CT images be pushed through PACS. [place] Authorization to Release on file. Images pushed to hike PACS external connection. documented in this encounter Plan of Treatment Upcoming Encounters Date Type Department Care Team (Late st Contact Info) Description 05/16/2024 3:15 PM EST Office Visit Urology, [facility] 132 [facility] [place] [address] Daniel Osei MD 27 [place] [address] 05/24/2024 9:00 AM EST Office Visit Orthopaedics [facility] 132 [facility] [place] [address] Rhianna Montes MD 132 [facility] [place] [address] 09/19/2024 7:40 AM EDT Office Visit Family Practice [facility] [address] [place] [address] Jolanta Roe MD [address] [place] [address] Scheduled Procedures Name Priority Associated Diagnoses Date/Ti me ROBOTIC PROSTATECTOMY RETROP UBIC WITH PELVIC LYMPHADENECTOMY [...] Not on filedocumented as of this encounter Care Teams Director Of Group Sales Relationship Specialty Start Date End Date Jolanta Roe MD [address] [place] [address] PCP - General Family Medicine 09/11/23 documented as of this encounter
--- OUTSIDE RECORDS SUMMARY | 2024-04-04 21:31 | External Medical Summary | Summary of Care ---
Author Name Unknown Organization [facility] Address [address] [place] [address] Phone [phone] Care Team Providers Care Medical Device Assembler Name Role Phone Jolanta Roe MD Primary Care Provider Reason for Visit * Reason Comments Outpatient Testing Encounter Details Date Type Department Care Team (Late st Contact Info) Description 03/24/2024 2:00 PM EST Laboratory Laboratory [facility] [address] [place] [address] [facility] Lab [facility] 200 [facility] [place] [address] Elevated prostate specific antigen (PSA); Malignant neoplasm of prostate (HCC) Allergies No known active allergiesdocumented as of this encounter (statuses as of 03/24/2024) Medications Triamcinolone Acetonide 0.1 % External Cream (Aristocort)Torrie cations:Rash and nonspecific skin eruption Apply topically to affected area 2 times a day. To affected area. 60 g 5 3 Active Additional Information Patient not taking.Reported on 03/09/2024 Atorvastatin Calcium 10 MG Oral Tablet (Lipitor) Take 1 Tablet by mouth in the morning. 30 Tablet 5 4 Active documented as of this encounter (statuses as of 03/24/2024) Active Problems Problem Noted Date Diagnosed Date [...] as of this encounter (statuses as of 03/24/2024) Resolved Problems Problem Noted Date Diagnosed Date Resolved Date Aortic root enlargement 10/13/2018 04/2 12/2020 documented as of this encounter (statuses as of 03/24/2024) Immunizations Name Administration Dates Next Due Seasonal [...] PM EDT documented as of this encounter Plan of Treatment Upcoming Encounters Date Type Department Care Team (Latest Contact Info) Description 05/16/2024 3:15 PM EST Office Visit Urology, [facility] [address] [place] [address] Daniel Osei MD 27 [place] [address] 05/24/2024 9:00 AM EST Office Visit Orthopaedics [facility] [address] [place] [address] Rhianna Montes MD [address] [place] [address] 06/23/2024 7:30 AM EST Hospital Encounter OR [facility], Operating Room, [facility] - 4th Floor [address] [place] [address] Daniel Osei MD 27 [place] [address] 06/23/2024 7:30 AM EST - 06/23/2024 12:27 PM EST Surgery OR [facility], Operating Room, [facility] - 4th Floor [address] [place] [address] Daniel Osei MD 27 [place] [address] ROBOTIC LAPAROSCOPIC PROSTATECTOMY RETROPUBIC RADICAL 09/19/2024 7:40 AM EDT Office Visit [facility] 200 [facility] [address] Jolanta Roe MD [address] [place] [address] Pending Results Name Type Priority Associated Diagnoses Date /Time PSA WITH FREE PSA IF INDICATED Lab Routine Elevated prostate specific antigen (PSA) 03/24/2024 2:05 PM EST TESTOSTERONE, TOTAL Lab Routine Malignant neoplasm of prostate (HCC) 03/24/2024 2:05 PM EST Scheduled Procedures Name Priority Associated Diagnoses Date/Ti [...] 2010 Depression Screening 09/02/2022 09/02/2021 COVID-19 Vaccine (1 - season) 2024 Influenza Vaccine (FLU shot) [...] of prostate Elevated prostate specific antigen (PSA) Malignant neoplasm of prostate (HCC) Malignant neoplasm of prostate Prostate cancer (HCC) Malignant neoplasm of prostate documented in this encounter Care Teams Medical Device Assembler Relationship Specialty Start Date End Date Jolanta Roe MD [address] [place] [address] PCP - General Family Medicine 09/11/23 documented as of this encounter
--- OUTSIDE RECORDS SUMMARY | 2024-04-04 21:31 | External Medical Summary | Summary of Care ---
Author Name Unknown Organization [facility] Address [address] [place] [address] Phone [phone] Care Team Providers Care Outreach Coordinator Name Role Phone Jolanta Roe MD Primary Care Provider [phone] Reason for Visit * Reason Comments Outpatient Testing Encounter Details Date Type Department Care Team (Late st Contact Info) Description 03/24/2024 2:00 PM EST Laboratory Laboratory [facility] [address] [place] [address] [facility] Lab [facility] 200 [facility] [place] [address] Elevated prostate specific antigen (PSA); Malignant neoplasm [...] 05/16/2024 3:15 PM EST Office Visit Urology, [facility] [address] [place] [address] Daniel Osei MD 27 [place] [address] 05/24/2024 9:00 AM EST Office Visit Orthopaedics [facility] [address] [place] [address] Rhianna Montes MD [address] [place] [address] 06/23/2024 7:30 AM EST Hospital Encounter OR [facility], Operating Room, [facility] - 4th Floor [address] [place] [address] Daniel Osei MD 27 [place] [address] 06/23/2024 7:30 AM EST - 06/23/2024 12:27 PM EST Surgery OR [facility], Operating Room, [facility] - 4th Floor [address] [place] [address] Daniel Osei MD 27 [place] [address] ROBOTIC LAPAROSCOPIC PROSTATECTOMY RETROPUBIC RADICAL 09/19/2024 7:40 AM EDT Office Visit [facility] [place] [address] Jolanta oRe MD [address] [place] [address] Pending Results Name Type Priority Associated Diagnoses [...] prostate documented in this encounter Care Teams Outreach Coordinator Relationship Specialty Start Date End Date Jolanta Roe MD [address] [place] [address] PCP - General Family Medicine 09/11/23 documented as of this encounter
--- OUTSIDE RECORDS SUMMARY | 2024-04-04 21:31 | External Medical Summary | Summary of Care ---
Author Name Unknown Organization [facility] Address [address] [place] [address] Phone [phone] Care Team Providers Care Clam Grower Name Role Phone Jolanta Roe MD Primary Care Provider [phone] Encounter Details Date Type Department Care Team (Late st Contact Info) Description 03/24/[address] [facility] [address] [place] [address] Tamiko Quiles PA-C [address] [place] [address] Malignant neoplasm of prostate (HCC)* Allergies No known active allergiesdocumented as of [...] 05/16/2024 3:15 PM EST Office Visit Urology, [facility] [address] [facility] [place] [address] Daniel Osei MD [address] [place] [address] 05/24/2024 9:00 AM EST Office Visit Orthopaedics [facility] [address] [place] [address] Rhianna Montes MD 132 [facility] [place] [address] 06/23/2024 7:30 AM EST Hospital Encounter OR [facility], Operating Room, [facility] - 4th Floor [address] [place] [address] Daniel Osei MD [address] [place] [address] 06/23/2024 7:30 AM EST - 06/23/2024 12:27 PM EST Surgery OR [facility], Operating Room, [facility] - 4th Floor [address] [place] [address] Daniel Osei MD [address] [place] [address] ROBOTIC LAPAROSCOPIC PROSTATECTOMY RETROPUBIC RADICAL 09/19/2024 7:40 AM EDT Office Visit [facility] [place] [address] [facility] [place] [address] Jolanta Roe MD 200 [facility] [place] [address] Pending Results Name Type Priority Associated Diagnoses Date /Time TESTOSTERONE, TOTAL Lab Routine Malignant neoplasm of prostate (HCC) 03/24/2024 2:05 PM EST Scheduled Orders Name Type Priority Associated Diagnoses Orde r Schedule TESTOSTERONE, TOTAL Lab Routine Malignant neoplasm of prostate (HCC) Expected: 03/24/2024, Expires: 03/24/2025 Scheduled Procedures Name Priority Associated Diagnoses Date/Ti [...] cancer (HCC)- Primary Malignant neoplasm of prostate Malignant neoplasm of prostate (HCC)- Primary Malignant neoplasm of prostate Prostate cancer (HCC) Malignant neoplasm of prostate documented in this encounter Care Teams Clam Grower Relationship Specialty Start Date End Date Jolanta Roe MD [address] [facility] [place] [address] PCP - General Family Medicine 09/11/23 documented as of this encounter
--- OUTSIDE RECORDS SUMMARY | 2024-04-04 21:31 | External Medical Summary ---
Author Name Unknown Address Unknown Organization [id number]:LABORATORY [facility] - [address] [place] [address] Laboratory Report Ordering Provider Test Date Status HIRAM ANDERSON 03/24/2024 14:05:15 Final Observation Date Value Abnormality Reference (Units ) Status Free PSA 03/24/2024 14:05:15 1.59 (ng/mL) Final Free PSA % 03/24/2024 14:05:15 9 Below low normal >2 5 (%) Final Performing Location LABORATORY [facility] - [address] [place] [address]
--- OUTSIDE RECORDS SUMMARY | 2024-04-04 21:31 | External Medical Summary ---
Author Name Unknown Address Unknown Organization [id number]:LABORATORY [facility] - [address] [place] [address] Laboratory Report Ordering Provider Test Date Status HIRAM ANDERSON 03/24/2024 14:05:15 Final Observation Date Value Abnormality Reference (Units ) Status PSA 03/24/2024 14:05:15 17.83 Above high normal <3 .10 (ng/mL) Final Performing Location LABORATORY [facility] - [address] [place] [address]
--- OUTSIDE RECORDS SUMMARY | 2024-04-04 21:31 | External Medical Summary | Summary of Care ---
Author Name Unknown Organization [facility] Address [address] [place] [address] Phone [phone] Care Team Providers Care Facilities Operator Name Role Phone Jolanta Roe MD Primary Care Provider [phone] Encounter Details Date Type Department Care Team (Late st Contact Info) Description 02/16/2024 1:00 PM EDT Office Visit Urology, [facility] 132 [facility] [place] [id number] Daniel Osei MD [address] [facility] [place] [address] Elevated prostate specific antigen (PSA)* Allergies No [...] Trans-Rectal Ultrasound Interpretation Report: We used the Yoostay ultrasound unit with end fire rectal probe [...] 05/16/2024 3:15 PM EST Office Visit Urology, [facility] [address] [place] [address] Daniel Osei MD [address] [place] [address] 05/24/2024 9:00 AM EST Office Visit Orthopaedics [facility] [address] [place] [address] Rhianna Montes MD 132 [place] [address] 06/23/2024 7:30 AM EST Hospital Encounter OR [facility], Operating Room, [facility] - 4th Floor [address] [facility] [place] [address] Daniel Osei MD [address] [place] [address] 06/23/2024 7:30 AM EST - 06/23/2024 12:27 PM EST Surgery OR [facility], Operating Room, [facility] - 4th Floor [facility] [address] Daniel Osei MD [address] [place] [address] ROBOTIC LAPAROSCOPIC PROSTATECTOMY RETROPUBIC RADICAL 09/19/2024 7:40 AM EDT Office Visit Family Practice [facility] [place] [address] [facility] [place] [address] Jolanta Roe MD [address] [facility] [place] [address] Pending Results Name Type Priority Associated Diagnoses Date /Time DECIPHER PROSTATE RP POST OP Lab Routine Elevated prostate specific antigen (PSA) 03/28/2024 1:59 PM EST Scheduled Orders Name Type Priority [...] Part Location Core # Core (cm) Diagnosis [place] Grade Group PN inv % TOOTH INSPECTOR A Left base 2 2.6 Benign prostatic [...] - 30%, 20% CORES with CARCINOMA = *TOOTH INSPECTOR = Prostate Carcinoma *Core = total length of cores submitted *PN inv = Perineural Invasion *HGPIN = High grade prostatic intraepithelial neoplasia *Grade group 1: Olga Score <= 6 *Grade group 2: Olga score 3+4=7 *Grade group 3: [place] score 4+3=7 *Grade group 4: Olga score 8 *Grade group 5: [place] score 9-10 Reference: Aba PM, Sharad PC, Josselyn AW, Cynthia JL. Prognostic Wakefield grade grouping: data based on the modified Olga scoring system. BJU Int. 2013:111:753-760. 02/18/2024 11:25 AM EDT [facility] Clinical History elevated psa 02/18/2024 11:25 AM EDT [facility] Gross Description A. Prostate. Received in formalin with a container labeled with "Anthony S Charlotte", "[id number]", "1965" and " left base". Received is 2 donohue-white core(s) of soft tissue measuring 2.6 cm in total length which is entirely submitted in A1. Gross By: MD Lawson Prostate. Received in formalin with a container labeled with "Anthony S Charlotte", "[id number]", "1965" and " left mid". Received is 3 donohue-white core(s) of soft tissue measuring 2.7 cm in total length which is entirely submitted in B1. Gross By: MD Kwon Prostate. Received in formalin with a container labeled with "Anthony S Charlotte", "[id number]", "1965" and " left apex". Received is 4 donohue-white core(s) of soft tissue measuring 3.1 cm in total length which is entirely submitted in C1. Gross By: MD Fournier Prostate. Received in formalin with a container labeled with "Anthony S Charlotte", "[id number]", "1965" and " right base". Received is 3 donohue-white core(s) of soft tissue measuring 3.9 cm in total length which is entirely submitted in D1. Gross By: MD Mendenhall Prostate. Received in formalin with a container labeled with "Anthony S Charlotte", "[id number]", "1965" and " right mid". Received is 3 donohue-white core(s) of soft tissue measuring 4.2 cm in total length which is entirely submitted in E1. Gross By: MD Jones Prostate. Received in formalin with a container labeled with "Anthony Beebe", "[id number]", "1965" and " right apex". Received is3 donohue-white core(s) of soft tissue measuring 3.1 cm in total length which is entirely submitted in F1. Gross By: 02/18/2024 11:25 AM EDT LABORATORY [facility] Microscopic Description Microscopic examination performed 02/18/2024 11:25 AM EDT LAB[facility]ORY [facility] Sign Out Location Pathologist sign out performed at [facility] ([facility] [address] [place] [id number]. 02/18/2024 11:25 AM EDT LAB[facility] Photographic images and diagrams represent foss findings in this case; they are not intended to replace a complete review of the final diagnostic report. The following statement applies to Flow Cytometry, Histology, In situ Hybridization Assays and Molecular Genetics. This test was developed and performed at [facility] and its performance characteristics determined by [facility]. It has not been cleared or approved [...] control reactions. 02/18/2024 11:25 AM EDT LABORATORY [facility] Tissue Region of prostate / Unknown Non-blood [...] ORDERABLES Final Result Performing Organization Address City/State/[facility] Co de Phone Number LABORATORY [facility] [address] [place] [address] documented in this encounter Visit Diagnoses Diagnosis Elevated prostate specific antigen (PSA)- Primary Prostate cancer (HCC) Malignant neoplasm of prostate documented in this encounter Care Teams Facilities Operator Relationship Specialty Start Date End Date Jolanta Roe MD [address] [place] [address] [place] [address] PCP - General Family Medicine 09/11/23 documented as of this encounter
--- OUTSIDE RECORDS SUMMARY | 2024-04-04 21:31 | External Medical Summary ---
Author Name Unknown Address Unknown Organization K01:LABORATORY [facility] - [address] [place] [address] Laboratory Report Ordering Provider Test Date Status TIM LEBLANC 03/24/2024 14:05:15 Final Observation Date Value Abnormality Reference (Units ) Status Testosterone [Mass/volume] in Serum or Plasma 03/24/2024 14:05:15 192.9 Below low normal 193.0-740.0 (ng/dL) Final Performing Location LABORATORY [facility] - [address] [place] [address]
--- OUTSIDE RECORDS SUMMARY | 2024-04-04 21:32 | External Medical Summary | Summary of Care ---
Author Name Unknown Organization [facility] Address [address] [place] [address] Phone [phone] Care Team Providers Care Machinist Instructor Name Role Phone Jolanta Roe MD Primary Care Provider [phone] Encounter Details Date Type Department Care Team (Late st Contact Info) Description 02/16/2024 1:00 PM EDT Office Visit Urology, [facility] 132 [facility] [place] [address] Daniel Osei MD 27 [facility] [place] [address] Elevated prostate specific antigen (PSA)* Allergies No known active allergiesdocumented as of this encounter (statuses as of 02/16/2024) Medications Medication Sig Dispensed Refills Start Date End Date Status Triamcinolone Acetonide 0.1 % External Cream (Aristocort)Indicati ons:Rash and nonspecific skin eruption Apply topically to affected area 2 times a day. To affected area. 60 g 5 07/28/2022 Active Atorvastatin Calcium 10 MG Oral Tablet (Lipitor) Take 1 Tablet by mouth in the morning. 30 Tablet 5 09/21/2023 Active Ciprofloxacin HCl 500 MG Oral Tablet (Cipro) Take 1 Tablet by mouth in the morning and 1 Tablet before bedtime. Start day prior to biopsy.. 6 Tablet 02/11/2024 Active documented as of this encounter (statuses as of 02/16/2024) Active Problems Problem Noted Date Diagnosed Date [...] as of this encounter (statuses as of 02/16/2024) Resolved Problems Problem Noted Date Diagnosed Date Resolved Date Aortic root enlargement 10/13/2018 04/2 12/2020 documented as of this encounter (statuses as of 02/16/2024) Immunizations Name Administration Dates Next Due Seasonal [...] Lab Results Component Value Date/Time PSA - BYRANER 16.39 (H) 01/01/2024 08:32 AM Prostate MRI [...] Trans-Rectal Ultrasound Interpretation Report: We used the Hublished ultrasound unit with end fire rectal probe [...] Care Team (Late st Contact Info) Description 03/23/2024 11:45 AM EST Office Visit Urology, [facility] [address] [place] [address] Daniel Osei MD [address] [place] [address] 05/24/2024 9:00 AM EST Office Visit Orthopaedics [facility] [address] [place] [address] Rhianna Montes MD [address] [place] [address] 09/19/2024 7:40 AM EDT Office Visit Family Practice [facility] [place] [address] [facility] [place] [address] Jolanta Roe MD 200 [facility] [place] [address] Scheduled Orders Name Type Priority Associated Diagnoses Orde r Schedule SURGICAL PATHOLOGY Pathology Routine Elevated prostate specific antigen (PSA) Ordered: 02/16/2024 NEEDLE/PUNCH BIOPSY OF PROSTATE Procedures Routine Elevated prostate specific antigen (PSA) Ordered: 02/16/2024 US ECHO TRANSRECTAL/PROSTATE Medical Imaging Routine Elevated prostate specific antigen (PSA) Expected: 02/16/2024, Expires: 03/18/2025 US GUIDE NEEDLE PROSTATE BX Medical Imaging Routine Elevated prostate specific antigen (PSA) Expected: 02/16/2024, Expires: 03/18/2025 Scheduled Procedures Name Priority Associated Diagnoses Date/Ti me COLONOSCOPY FLEXIBLE PROXIMA L DIAGNOSTIC Recall Special [...] Cancer Screening 06/28/2028 Lipid Panel 09/10/2028 09/11/2023, 05, 05/09/2019, Additional history exists Zoster Vaccines Completed [...] as of this encounter Visit Diagnoses Diagnosis Elevated prostate specific antigen (PSA)- Primary documented in this encounter Care Teams Machinist Instructor Relationship Specialty Start Date End Date Jolanta Roe MD 200 [place] [address] PCP - General Family Medicine 09/11/23 documented as of this encounter
--- OUTSIDE RECORDS SUMMARY | 2024-04-04 21:32 | External Medical Summary | Summary of Care ---
Author Name Unknown Organization [facility] Address [address] [place] [address] Phone [phone] Care Team Providers Care Director Of Cardiology Service Line Name Role Phone Jolanta Roe MD Primary Care Provider [phone] Encounter Details Date Type Department Care Team (Late st Contact Info) Description 02/16/2024 1:00 PM EDT Office Visit Urology, [facility] 132 [facility] [place] [address] Daniel Osie MD 27 [facility] [place] [address] Elevated prostate specific antigen (PSA)* Allergies No [...] Trans-Rectal Ultrasound Interpretation Report: We used the [employer] ultrasound unit with end fire rectal probe [...] 03/23/2024 11:45 AM EST Office Visit Urology, [facility] [address] [place] [address] Daniel Osei MD [address] [place] [address] 05/24/2024 9:00 AM EST Office Visit Orthopaedics [facility] [address] [place] [address] Rhianna Montes MD [address] [place] [address] 09/19/2024 7:40 AM EDT Office Visit Family Practice [facility] [place] 200 [facility] [place] [address] Jolanta Roe MD 200 [facility] [place] [address] Scheduled Orders Name Type Priority Associated Diagnoses [...] Primary documented in this encounter Care Teams Director Of Cardiology Service Line Relationship Specialty Start Date End Date Jolanta Roe MD 200 [facility] [place] [address] PCP - General Family Medicine 09/11/23 documented as of this encounter
--- OUTSIDE RECORDS SUMMARY | 2024-04-04 21:32 | External Medical Summary | Summary of Care ---
Author Name Unknown Organization [facility] Address [address] [place] [address] Phone [phone] Care Team Providers Care Lead Electrician Name Role Phone Jolanta Roe MD Primary Care Provider [phone] Reason for Referral * Precert (Within 10 days (routine)) - Authorized Specialty Diagnoses / Procedures Referred By Contac t Referred To Contact Radiology Diagnoses Prostate cancer (HCC) Procedures PET CT SKULL BASE TO MID THIGH PSMA Daniel Osei MD [address] [place] [address] Referral ID Status Reason Start Date Expiration Date V isits Requested Visits Authorized [id number] Authorized 02/19/2024 [id number] Reason for Visit * Precert (Within 10 days (routine)) - Authorized Specialty Diagnoses / Procedures Referred By Contac t Referred To Contact Radiology Diagnoses Prostate cancer (HCC) Procedures PET CT SKULL BASE TO MID THIGH PSMA Daniel Osei MD [address] [place] [address] Referral ID Status Reason Start Date Expiration Date V isits Requested Visits Authorized [id number] Authorized 02/19/2024 [id number] Encounter Details Date Type Department Care Team (Latest Contact Info) Description 03/03/2024 11:50 AM EDT Hospital Encounter Radiology, [address] [address] Arrived Discharge Disposition: Home - Self Care Allergies No known active allergiesdocumented as of this encounter (statuses as of 03/04/2024) Medications Medication Sig Dispensed Refills Start Date [...] as of this encounter (statuses as of 03/04/2024) Active Problems Problem Noted Date Diagnosed Date [...] as of this encounter (statuses as of 03/04/2024) Resolved Problems Problem Noted Date Diagnosed Date Resolved Date Aortic root enlargement 10/13/2018 04/2 12/2020 documented as of this encounter (statuses as of 03/04/2024) Immunizations Name Administration Dates Next Due Seasonal [...] on file documented as of this encounter Plan of Treatment Upcoming Encounters Date Type Department Care Team (Late st Contact Info) Description 03/09/2024 11:45 AM EST Office Visit Urology [address] [place] [address] Daniel Osei MD [address] [place] [address] 03/23/2024 11:45 AM EST Office Visit Urology [facility] 132 [facility] [place] [address] Daniel Osei MD 27 [place] [address] 05/24/2024 9:00 AM EST Office Visit Orthopaedics [facility] [address] [place] [address] Rhianna Montes MD [address] [place] [address] 09/19/2024 7:40 AM EDT Office Visit Family Practice [facility] 200 [facility] [place] [address] Jolanta Roe MD 200 [facility] [place] [address] Scheduled Procedures Name Priority Associated Diagnoses Date/Ti [...] Procedure Name Priority Date/Time Associated Diagnosis Comments PET CT SKULL BASE TO MID THIGH PSMA Routine 03/03/2024 1:56 PM EDT Prostate cancer (HCC) documented in this encounter Results * PET CT SKULL BASE TO MID THIGH PSMA (03/03/2024 1:56 PM EDT) Anatomical Region Laterality Modality Body, Chest, Abdomen, Pelvis Pos itron Emission Tomography (PET) 03/04/2024 8:13 AM EDT Impressions 03/04/2024 8:11 AM EDT IMPRESSION 1. Focal uptake in the right posterior prostate apex consistent with biopsy- proven malignancy. 2. No evidence of metastatic disease. Narrative 03/04/2024 8:11 AM EDT EXAM PET CT SKULL BASE TO MID THIGH PSMA - 03/03/2024 1:56 pm HISTORY New diagnosis of prostate cancer COMPARISON MRI pelvis from 02/04/2024 TECHNIQUE PET imaging was performed from the skull base to the mid thighs 60 minutes following the intravenous administration of 9.0 mCi of F18 PSMA avid Pylarify (PYL). Low-dose CT was performed for anatomic localization and attenuation correction purposes and fused with the PET images. This is the initial PSMA PET-CT for the above indication. The standardized uptake values (SUV) are normalized to BMI and are reported below using maximum values within a region of interest. FINDINGS SUV reference ranges: Parotid: 15.0 Liver: 5.7 Blood pool: 1.8 HEAD / NECK: Misregistration resulting in left lacrimal uptake projecting over the left globe. -No abnormal radiotracer uptake. -No enlarged cervical lymph nodes. -Physiologic salivary and lacrimal gland uptake. CHEST: -No abnormal radiotracer uptake. -No suspicious pulmonary nodules. 3 mm right lower lobe subpleural nodule -No mediastinal or axillary lymphadenopathy. ABDOMEN/PELVIS: Misregistration in the upper abdomen. -Focal uptake in the right posterior prostate apex, SUV 6.2 -No significant abdominopelvic lymphadenopathy. -Physiologic gastrointestinal, urinary, and splenic uptake. MUSCULOSKELETAL / OTHER: -No suspicious osseous uptake. ADDITIONAL CT FINDINGS: Lines/Devices: None. Head/Neck: Unremarkable Chest:Trace coronary calcifications. Abdomen/Pelvis: Moderate atherosclerotic vascular calcifications. Normal appendix. Nondistended urinary bladder. Musculoskeletal/Other: Degenerative changes without aggressive osseous lesions. Procedure Note Anthony Childress DO - 03/04/[address] SKULL BASE TO MID THIGH PSMA - 03/03/2024 1:56 pm HISTORY New diagnosis of prostate cancer COMPARISON MRI pelvis from 02/04/2024 TECHNIQUE PET imaging was performed from the skull base to the mid thighs 60 minutesfollowing the intravenous administration of 9.0 mCi of F18 PSMA avidPylarify (PYL). Low- dose CT was performed for anatomic localization andattenuation correction purposes and fused with the PET images. This isthe initial PSMA PET-CT for the above indication. The standardizeduptake values (SUV) are normalized to BMI and are reported below usingmaximum values within a region of interest. FINDINGS SUV reference ranges: Parotid: 15.0 Liver: 5.7 Blood pool: 1.8 HEAD / NECK: Misregistration resulting in left lacrimal uptake projectingover the left globe. -No abnormal radiotracer uptake. -No enlarged cervical lymph nodes. -Physiologic salivary and lacrimal gland uptake. CHEST: -No abnormal radiotracer uptake. -No suspicious pulmonary nodules. 3 mm right lower lobe subpleuralnodule -No mediastinal or axillary lymphadenopathy. ABDOMEN/PELVIS: Misregistration in the upper abdomen. -Focal uptake in the right posterior prostate apex, SUV 6.2 -No significant abdominopelvic lymphadenopathy. -Physiologic gastrointestinal, urinary, and splenic uptake. MUSCULOSKELETAL / OTHER: -No suspicious osseous uptake. ADDITIONAL CT FINDINGS: Lines/Devices: None. Head/Neck: Unremarkable Chest:Trace coronary calcifications. Abdomen/Pelvis: Moderate atherosclerotic vascular calcifications. Normalappendix. Nondistended urinary bladder. Musculoskeletal/Other: Degenerative changes without aggressive osseouslesions. IMPRESSION IMPRESSION 1. Focal uptake in the right posterior prostate apex consistent withbiopsy- proven malignancy. 2. No evidence of metastatic disease. Daniel Osei MD [facility] documented in this encounter Visit Diagnoses Diagnosis Prostate cancer (HCC) Malignant neoplasm of prostate documented in this encounter Administered Medications Inactive Administered Medications - up to 3 most recent administrations Medication Order MAR Action Action Date Dose Rate Site Piflufolastat F 18 (Pylarify) inj 9 millicurie 9 millicurie, Intravenous, ONCE, On Khadra 03/03/24 at 1234, For 1 dose, Radiology Medication Routing (Non-IR) Given 03/03/2024 12:20 PM EDT 9 millicuries Antecubital Right documented in this encounter Care Teams Lead Electrician Relationship Specialty Start Date End Date Jolanta Roe MD 200 [facility] [place] [address] PCP - General Family Medicine 09/11/23 documented as of this encounter
--- OUTSIDE RECORDS SUMMARY | 2024-04-04 21:32 | External Medical Summary | Summary of Care ---
Author Name Unknown Organization [facility] Address [address] [place] [address] Phone [phone] Care Team Providers Care School Vocational Educator Name Role Phone Jolanta Roe MD Primary Care Provider [phone] Reason for Visit * Reason Comments Follow Up Bilateral shoulder Pain Encounter Details Date Type Department Care Team (Late st Contact Info) Description 01/19/2024 8:30 AM EDT Office Visit Orthopaedics [facility] [address] [place] [address] Rhianna Montes MD [address] [place] [address] Rotator cuff arthropathy of both shoulders* Allergies No known active allergiesdocumented as of this encounter (statuses as of 01/19/2024) Medications Medication Sig Dispensed Refills Start Date End Date Status Triamcinolone Acetonide 0.1 % External Cream (Aristocort)Indicati ons:Rash and nonspecific skin eruption Apply topically to affected area 2 times a day. To affected area. 60 g 5 07/28/2022 Active Atorvastatin Calcium 10 MG Oral Tablet (Lipitor) Take 1 Tablet by mouth in the morning. 30 Tablet 5 09/21/2023 Active Hospital, Clinic, or Other Facility Administered Medication Ordered Dose Route Frequency Start Date End Date Status lidocaine 1% 1 mL - triamcinolone acetonide 40 mg/mL 1 mL inj 2 mLIndications:Rotator cuff arthropathy of both shoulders 2 mL IJ ONCE 01/19/2024 01/19/2024 Ended lidocaine 1% 1 mL - triamcinolone acetonide 40 mg/mL 1 mL inj 2 mLIndications:Rotator cuff arthropathy of both shoulders 2 mL IJ ONCE 01/19/2024 01/19/2024 Ended documented as of this encounter (statuses as of 01/19/2024) Active Problems Problem Noted Date Diagnosed Date [...] as of this encounter (statuses as of 01/19/2024) Resolved Problems Problem Noted Date Diagnosed Date Resolved Date Aortic root enlargement 10/13/2018 0412/2020 documented as of this encounter (statuses as of 01/19/2024) Immunizations Name Administration Dates Next Due Seasonal [...] as of this encounter Progress Notes * Rhianna Montes MD - 01/19/2024 9:00 AM EDT Anthony Beebe is a 58 year old male patient with bilateral rotator cuff arthropathy who presentstoday for bilateral ultrasound-guided subacromial injections. Last injected in September with good relieffor 4 months. Pain started to return. Would still like to avoid surgery at this time. Shoulder exam, bilateral Inspection: No visible deformity, redness, swelling or bruising Palpation: Significant tenderness into the subacromial space Shoulder glenohumeral ACTIVE range of motion: ABD (170') - Right - 150 degrees Left - 150 degrees ER (40') - Bilateral and equal ICD-10-CM 1. Rotator cuff arthropathy of both shoulders M12.811 M12.812 Discussed risks, benefits, and alternatives to subacromial space injection. He has agreed will proceed with injection. He would like to set up a follow-up visit for 4 months for repeat injections, but will call to pushthis appointment back if his pain relief last for longer than that. At this time he would like to defer on a referral to shoulder surgeon. Procedure note: Ultrasound-guided BILATERAL subacromial space injection Time out: Prior to injection, a time out was called to confirm the administration of appropriate medicine, patient name, procedure and confirm to the best of our ability and knowledge the presence of any necessary risks and benefits. Patient verbalizes understanding. Ultrasound utilized to guide injection Ultrasound required due to: need to visualize specific joint recess Ultrasound utilized to guide injection Ultrasound not billed for as I am in Keith's training phase Using sterile technique, the area was cleansed with ChloraPrep. Under ultrasound guidance with a linear transducer a 25 gauge needle was advanced into the subacromial space using an in plane approach. 1.0 mL 1% lidocaine and 1.0 mL triamcinolone injected into the subacromial space and visualized entered in the desired space. There were no complications. Patient tolerated procedure with no significant bleeding or adverse reaction. Patient instructed to call or return to clinic for fever or warmth and redness at injection site for potential infection. Patient also advised as to potential for steroid flare reaction including increased pain and redness at injection site which should be treated with ice and resolve within 24 hours. Rhianna Montes MD 05/19/2023 documented in this encounter Nursing Notes * Lindsey Fan LPN - 01/19/2024 8:13 AM EDT F/u Bilateral shoulder pain 5/10 today 09/16/23 previous injections: Pt had 4 mos of pain relief Pt is unaccompanied today Sarai Valero LPN documented in this encounter Plan of Treatment Upcoming Encounters Date Type Department Care Team (Late st Contact Info) Description 02/04/2024 12:30 PM EDT Imaging [facility], a service of [facility] [address] [place] [address] 03/23/2024 11:45 AM EST Office Visit Urology, [facility] [address] [facility] [place] [address] Daniel Osei MD [address] [place] [address] 05/24/2024 9:00 AM EST Office Visit Orthopaedics [facility] [address] [place] [address] Rhianna Montes MD [address] [place] [address] 09/19/2024 7:40 AM EDT Office Visit Family Practice [facility] [address] [facility] [place] [address] Jolanta Roe MD [address] [facility] [place] [address] Scheduled Procedures Name Priority Associated Diagnoses Date/Ti [...] as of this encounter Visit Diagnoses Diagnosis Rotator cuff arthropathy of both shoulders- Primary documented in this encounter Administered Medications Inactive Administered Medications - up to 3 most recent administrations Medication Order MAR Action Action Date Dose Rate Site lidocaine 1% 1 mL - triamcinolone acetonide 40 mg/mL 1 mL inj 2 mL 2 mL, Injection, ONCE, On Thu01/19/24 at 0945, For 1 dose, Lidocaine 1% 1mL Triamcinolone Acetonide 40 mg/mL 1 mL (Final concentration = 20 mg/mL) REFRIGERATE and SHAKE WELL Given 01/19/2024 9:27 AM EDT 2 mL Shoulder Right lidocaine 1% 1 mL - triamcinolone acetonide 40 mg/mL 1 mL inj 2 mL 2 mL, Injection, ONCE, On Thu01/19/24 at 0945, For 1 dose, Lidocaine 1% 1mL Triamcinolone Acetonide 40 mg/mL 1 mL (Final concentration = 20 mg/mL) REFRIGERATE and SHAKE WELL Given 01/19/2024 9:26 AM EDT 2 mL Shoulder Left documented in this encounter Care Teams School Vocational Educator Relationship Specialty Start Date End Date Jolanta Roe MD [address] [facility] [place] [address] PCP - General Family Medicine 09/11/23 documented as of this encounter
--- OUTSIDE RECORDS SUMMARY | 2024-04-04 21:32 | External Medical Summary | Summary of Care ---
Author Name Unknown Organization [facility] Address [address] [place] [address] Phone [phone] Care Team Providers Care Diagram Clerk Name Role Phone Jolanta Morris MD Primary Care Provider Reason for Referral * Evaluate & Treat - Unlimited Visits (Within 10 days (routine)) - Authorized Specialty Diagnoses / Procedures Referred By Contac t Referred To Contact Radiation Oncology Diagnoses Prostate cancer (HCC) Daneil Osei MD [address] [place] [address] Referral ID Status Reason Start Date Expiration Date Visits Requested Visits Authorized [id number] Authorized Specialty Services Required 03/09/2024 [id number] Question Answer Referral Priority Within 10 days (routine) Where should this appointment be scheduled? [facility] Comments New diagnosis of [place] 4+3 CAP, PSA 16 Reason for Visit * Reason Comments Follow Up PSMA results (03/03) . Encounter Details Date Type Department Care Team (Late st Contact Info) Description 03/09/2024 11:30 AM EST Office Visit Urology, [facility] [address] [facility] [place] [id number] Daniel Osei MD [address] [place] [address] Prostate cancer (HCC)*; Elevated prostate specific antigen (PSA) Allergies No known active allergiesdocumented as of this encounter (statuses as of 03/09/2024) Medications Medication Sig Dispensed Refills Start Date [...] as of this encounter (statuses as of 03/09/2024) Active Problems Problem Noted Date Diagnosed Date [...] as of this encounter (statuses as of 03/09/2024) Resolved Problems Problem Noted Date Diagnosed Date Resolved Date Aortic root enlargement 10/13/2018 04/2 12/2020 documented as of this encounter (statuses as of 03/09/2024) Immunizations Name Administration Dates Next Due Seasonal [...] Progress Notes * Daniel Osei MD - 03/09/2024 11:42 AM EST Images from the original note were not included. [id number] PCP: [place] [address] [phone] Anthony Beebe is a 58 year old male, who presents for discussion of his prostate biopsy pathology and imaging studies. Patient's past notes reviewed. Previous prostate MRI suggested a PI-RADS 5 lesion. He is here with his sister and [id number]. Patient is somewhat anxious regarding his difficulties. [...] Part Location Core # Core (cm) Diagnosis [place] Grade Group PN inv % CENTERLESS GRINDER SET UP OPERATOR A Left base 2 2.6 Benign prostatic [...] performed by Wallace Shine MD at ENDOS[facility] Past Medical History: Diagnosis Date Aortic root [...] family today regarding his diagnosis of prostatecancer. [place] grading system, staging, need for imaging and [...] reviewed at length. 75 minutes spent in [id number] discussion, guideline review, charting review and documentation [...] vocalizes good understanding of the treatment plan. Daniel Osei MD 11:42 AM 03/09/2024 documented in this encounter Nursing Notes * Deysi Suero MED ASSIST - 03/09/2024 11:24 AM EST Chief Complaint Patient presents with Follow Up PSMA results (03/03). Verified patient. documented in this encounter Plan of Treatment Upcoming Encounters Date Type Department Care Team (Late st Contact Info) Description 05/16/2024 3:15 PM EST Office Visit Urology, [facility] [address] [place] [address] Daniel Osei MD [address] [place] [address] 05/24/2024 9:00 AM EST Office Visit Orthopaedics [facility] [address] [place] [address] Rhianna Montes MD [address] [place] [address] 09/19/2024 7:40 AM EDT Office Visit Family Practice [facility] [place] [address] Jolanta [place] MD [address] [facility] [place] [address] Scheduled Procedures Name Priority Associated Diagnoses Date/Ti [...] (PSA) documented in this encounter Care Teams Diagram Clerk Relationship Specialty Start Date End Date Jolanta Morris MD [address] [place] [address] PCP - General Family Medicine 09/11/23 documented as of this encounter
--- OUTSIDE RECORDS SUMMARY | 2024-04-04 21:32 | External Medical Summary | Summary of Care ---
Author Name Unknown Organization [facility] Address [address] [place] [address] Phone [phone] Care Team Providers Care Supervisor Electronics Assembly Name Role Phone Jolanta Roe MD Primary Care Provider [phone] Encounter Details Date Type Department Care Team (Late st Contact Info) Description 02/16/2024 1:00 PM EDT Office Visit Urology, [facility] 132 [facility] [place] [address] Daniel Osei MD 27 [facility] [place] [address] Elevated prostate specific antigen (PSA)* Allergies No [...] Trans-Rectal Ultrasound Interpretation Report: We used the [employer] ultrasound unit with end fire rectal probe [...] 03/23/2024 11:45 AM EST Office Visit Urology, [facility] [address] [place] [address] Daniel Osei MD [address] [place] [address] 05/24/2024 9:00 AM EST Office Visit Orthopaedics [facility] [address] [place] [address] Rhianna Montes MD [address] [place] [address] 09/19/2024 7:40 AM EDT Office Visit Family Practice [facility] [place] [address] [facility] [place] [address] Jolanta Roe MD 200 [facility] [place] [address] Scheduled Orders Name Type Priority Associated Diagnoses [...] Primary documented in this encounter Care Teams Supervisor Electronics Assembly Relationship Specialty Start Date End Date Jolanta Roe MD 200 [facility] [place] [address] PCP - General Family Medicine 09/11/23 documented as of this encounter
--- OUTSIDE RECORDS SUMMARY | 2024-04-04 21:32 | External Medical Summary | Summary of Care ---
Author Name Unknown Organization [facility] Address [address] [place] [address] Phone [phone] Care Team Providers Care Occupational Physician Name Role Phone Jolanta Roe MD Primary Care Provider [phone] Encounter Details Date Type Department Care Team (Late st Contact Info) Description 02/16/2024 1:00 PM EDT Office Visit Urology, [facility] 132 [facility] [place] [address] Daniel Osei MD 27 [facility] [place] [address] Elevated prostate specific antigen (PSA)* Allergies No [...] Trans-Rectal Ultrasound Interpretation Report: We used the [employer] ultrasound unit with end fire rectal probe [...] 11:45 AM EST Office Visit Urology, [facility] [address] [place] [address] Daniel Osei MD [address] [place] [address] 05/24/2024 9:00 AM EST Office Visit Orthopaedics [facility] [address] [place] [address] Rhianna Montes MD [address] [place] [address] 09/19/2024 7:40 AM EDT Office Visit Family Practice [facility] [place] [address] [facility] [place] [address] Jolanta Roe MD [address] [facility] [place] [address] Scheduled Orders Name Type Priority Associated Diagnoses [...] Primary documented in this encounter Care Teams Occupational Physician Relationship Specialty Start Date End Date Jolanta Roe MD [address] [place] [address] PCP - General Family Medicine 09/11/23 documented as of this encounter
--- OUTSIDE RECORDS SUMMARY | 2024-04-04 21:32 | External Medical Summary | Summary of Care ---
Author Name Unknown Organization [facility] Address [address] [place] [address] Phone [phone] Care Team Providers Care Case Therapist Name Role Phone Jolanta Roe MD Primary Care Provider [phone] Encounter Details Date Type Department Care Team (Late st Contact Info) Description 02/16/2024 1:00 PM EDT Office Visit Urology, [facility] 132 [facility] [place] [address] Daniel Osei MD [address] [facility] [place] [address] Elevated prostate specific antigen (PSA)* Allergies No [...] Trans-Rectal Ultrasound Interpretation Report: We used the [employer] ultrasound unit with end fire rectal probe [...] 03/23/2024 11:45 AM EST Office Visit Urology, [facility] [address] [place] [address] Daniel Osei MD [address] [place] [address] 05/24/2024 9:00 AM EST Office Visit Orthopaedics [facility] [address] [place] [address] Rhianna Montes MD [address] [place] [address] 09/19/2024 7:40 AM EDT Office Visit Family Practice [facility] [address] [facility] [place] [address] Jolanta Roe MD 200 [facility] [place] [address] Pending Results Name Type Priority Associated Diagnoses Date /Time SURGICAL PATHOLOGY Pathology Routine Elevated prostate specific antigen (PSA) 02/16/2024 1:59 PM EDT Scheduled Orders Name Type Priority Associated Diagnoses [...] Primary documented in this encounter Care Teams Case Therapist Relationship Specialty Start Date End Date Jolanta Roe MD 200 [place] [address] PCP - General Family Medicine 09/11/23 documented as of this encounter
--- OUTSIDE RECORDS SUMMARY | 2024-04-04 21:32 | External Medical Summary | Summary of Care ---
Author Name Unknown Organization [facility] Address [address] [place] [address] Phone [phone] Care Team Providers Care Recovery Operator Helper Name Role Phone Jolanta Roe MD Primary Care Provider [phone] Reason for Visit * Precert (Within 10 days (routine)) - Authorized Specialty Diagnoses / Procedures Referred By Contac t Referred To Contact Radiology Diagnoses Prostate cancer (HCC) Procedures PET CT SKULL BASE TO MID THIGH PSMA Daniel Osei MD [address] [place] [address] [place] [address] Referral ID Status Reason Start Date Expiration Date V isits Requested Visits Authorized [id number] Authorized 02/19/[phone] Encounter Details Date Type Department Care Team (Latest Contact Info) Description 03/03/2024 11:51 AM EDT - 03/03/2024 11:59 PM EDT Hospital Encounter Radiology, [facility] [address] [place], [place] [phone] Arrived Discharge Disposition: Home - Self Care [...] Description 03/09/2024 11:45 AM EST Office Visit Urology, [facility] [address] [place] [address] Daniel Osei MD [address] [place] [address] 03/23/2024 11:45 AM EST Office Visit Urology, [facility] [address] [place] [address] Daniel Osei MD [address] [place] [address] 05/24/2024 9:00 AM EST Office Visit Orthopaedics [facility] [address] [place] [address] Rhianna Montes MD [address] [place] [address] 09/19/2024 7:40 AM EDT Office Visit Family Practice [facility] [address] [place] [address] Jolanta Roe MD [address] [place], [place] [address] Scheduled Procedures Name Priority Associated Diagnoses Date/Ti [...] evidence of metastatic disease. Daniel Osei MD RAD NUCLEAR MED documented in this encounter Care Teams Recovery Operator Helper Relationship Specialty Start Date End Date Jolanta Roe MD 200 [facility] [place] [address] PCP - General Family Medicine 09/11/23 documented as of this encounter
--- OUTSIDE RECORDS SUMMARY | 2024-04-04 21:33 | External Medical Summary | Summary of Care ---
Author Name Unknown Organization [facility] Address [address] [place] [address] Phone [phone] Care Team Providers Care Forestry Professor Name Role Phone Jolanta Roe MD Primary Care Provider [phone] Reason for Referral * Evaluate & Treat - Unlimited Visits (Within 3 days (urgent)) - Authorized Specialty Diagnoses / Procedures Referred By Sofia smyth Referred To Contact Urology Diagnoses Elevated prostate specific antigen (PSA) Jolanta Roe MD [address] [place] [address] Referral ID Status Reason Start Date Expiration Date Visits Requested Visits Authorized [id number] Authorized Specialty Services Required 01/05/[phone] Question Answer Referral Priority Within 3 days (urgent) Where should this appointment be scheduled? [facility] What is the patient being referred for? Elevated PSA Reason for Visit * Reason Onset Date Comments Abnormal Test Results 01/05/2024 Elevated P SA Encounter Details Date Type Department Care Team (Late st Contact Info) Description 01/05/2024 Telephone Family Practice [facility] [address] [place] [address] [address] Jolanta Roe MD [address] [place] [address] Abnormal Test Results (Elevated PSA) Allergies No known active allergiesdocumented as of this encounter (statuses as of 01/05/2024) Medications Medication Sig Dispensed Refills Start Date [...] as of this encounter (statuses as of 01/05/2024) Active Problems Problem Noted Date Diagnosed Date [...] as of this encounter (statuses as of 01/05/2024) Resolved Problems Problem Noted Date Diagnosed Date Resolved Date Aortic root enlargement 10/13/2018 04/2 12/2020 documented as of this encounter (statuses as of 01/05/2024) Immunizations Name Administration Dates Next Due Seasonal [...] encounter Miscellaneous Notes * Telephone Encounter - Jolanta Roe MD - 01/05/2024 1:20 PM EDT Attempted to call patient x2 to discuss elevated PSA results but no answer. He does not have MyChart set up. Left voicemail to call clinic back so I can review with him. Nursing-- please try again to reach patient. I will be out of the office on vacation after today (other than Thursday). He will need to see urology for next steps. As we discussed at his visit, elevated PSA can be caused by multiple things but anything >10 warrants urology consult. Referral ordered, forwarding to scheduling. PSA Results: Lab Results Component Value Date/Time PSA - BRYANER 16.39 (H) 01/01/2024 08:32 AM documented in this encounter Plan of Treatment Upcoming Encounters Date Type Department Care Team (Late st Contact Info) Description 01/19/2024 8:30 AM EDT Office Visit Orthopaedics [facility] [address] [place] [address] Rhianna Montes MD [address] [place] [address] 09/19/2024 7:40 AM EDT Office Visit [facility] [address] [place] [address] Jolanta Roe MD [address] [facility] [place] [address] Scheduled Procedures Name Priority Associated Diagnoses Date/Ti me COLONOSCOPY FLEXIBLE PROXIMA L DIAGNOSTIC Recall Special screening for malignant neoplasm of colon Scheduled Referrals Name Type Priority Associated Diagnoses Orde r Schedule ADULT/PEDS UROLOGY REFERRAL OP Referral Within 3 days (urgent) Elevated prostate specific antigen (PSA) Ordered: 01/05/2024 Health Maintenance Due Date Last Done Comments [...] Primary documented in this encounter Care Teams Forestry Professor Relationship Specialty Start Date End Date Jolanta Roe MD [address] [place] [address] PCP - General Family Medicine 09/11/23 documented as of this encounter
--- OUTSIDE RECORDS SUMMARY | 2024-04-04 21:33 | External Medical Summary | Summary of Care ---
Author Name Unknown Organization [facility] Address [address] [place] [address] Phone [phone] Care Team Providers Care Business Communications Instructor Name Role Phone Jolanta Roe MD Primary Care Provider [phone] Reason for Visit * Reason Comments Re-Check Encounter Details Date Type Department Care Team (Late st Contact Info) Description 01/01/2024 8:00 AM EDT Office Visit Family Practice [facility] [address] [facility] [place] [address] Jolanta Roe MD [address] [place] [address] Mixed hyperlipidemia*; Class 1 obesity due to excess calories with serious comorbidity and body mass index (BMI) of 31.0 to 31.9 in adult; Rotator cuff arthropathy of both shoulders; Asymptomatic varicose veins of both lower extremities; Screening for prostate cancer Allergies No known active allergiesdocumented as of this encounter (statuses as of 01/01/2024) Medications Medication Sig Dispensed Refills Start Date [...] as of this encounter (statuses as of 01/01/2024) Active Problems Problem Noted Date Diagnosed Date [...] as of this encounter (statuses as of 01/01/2024) Resolved Problems Problem Noted Date Diagnosed Date Resolved Date Aortic root enlargement 10/13/2018 04/2 12/2020 documented as of this encounter (statuses as of 01/01/2024) Immunizations Name Administration Dates Next Due Seasonal [...] on file documented as of this encounter Last Filed Vital Signs Vital Sign Reading Time Taken Comments Blood Pressure 110/70 01/01/2024 7:52 AM EDT Pulse 61 01/01/2024 7:52 AM EDT Temperature 35.9 C (96.7 F) 01/01/2024 7:52 AM ED T Respiratory Rate 18 01/01/2024 7:52 AM EDT Oxygen Saturation 97% 01/01/2024 7:52 AM EDT Inhaled Oxygen Concentration - - Weight 103 kg (227 lb 0.6 oz) 01/01/2024 7:52 AM EDT Height - - Body Mass Index 31.67 09/11/2023 7:38 AM EDT documented in this encounter Progress Notes * Jolanta Roe MD - 01/01/2024 7:58 AM EDT Subjective Chief Complaint Patient presents with Re-Check HPI: Anthony Beebe is a 58 year old male. Patient is unaccompanied. The following issues were addressed today: Started on atorvastatin 10mg after last visit. Had headaches for first two weeks after he started medication but that has resolved. Otherwise tolerating well. Forgets to take sometimes. Had a normal stress echo recently. Has not had any recurrence of chest pain. Thinks it was happening after caffeine use. Would like to discuss prostate cancer screening. States he had a friend diagnosed with prostate cancer recently. Seeing orthopedics for bilateral rotate cuff arthropathy. Had steroid injections in September and has follow-up appointment in a few weeks. States injections work pretty well for about 3-4 months. Large varicosities on both lower extremities, R>L. Denies pain, only occasional mild swelling. Review of Systems: See HPI Objective BP 110/70 | Pulse 61 | Temp 35.9 C (96.7 F) (Tympanic) | Resp 18 | Wt 103 kg (227 lb 0.6 oz) | SpO2 97% | BMI 31.67 kg/m | BSA 2.27 m Wt Readings from Last 3 Encounters: 01/01/24 103 kg (227 lb 0.6 oz) 09/11/23 101.7 kg (224 lb 1.9 oz) 11/06/22 100.2 kg (221 lb) BP Readings from Last 3 Encounters: 01/01/24 110/70 09/11/23 120/70 11/06/22 110/68 General: Well-appearing, no acute distress Cardiovascular: Regular rate and rhythm, no murmur Respiratory: Good respiratory effort, breath sounds equal and clear to auscultation bilaterally Extremities: No edema Neurological: Alert and oriented, no focal deficits noted Psychiatric: Appropriate mood and affect Assessment & Plan 1. Mixed hyperlipidemia Continue atorvastatin 10mg daily and dietary changes. Recheck lipid panel in 9 months. - LIPID PANEL WITH DIRECT LDL IF TG IS HIGH; Future 2. Class 1 obesity due to excess calories with serious comorbidity and body mass index (BMI) of 31.0 to 31.9 in adult Diet and exercise discussed. 3. Rotator cuff arthropathy of both shoulders Follow-up with orthopedics as scheduled. 4. Asymptomatic varicose veins of both lower extremities Elevation, compression stockings PRN. 5. Screening for prostate cancer - PSA; Future Return in about 9 months (around 09/30/2024) for routine follow-up with labs before. This note was electronically signed by Jolanta Roe MD documented in this encounter Nursing Notes * Daysi Cormier LPN - 01/01/2024 7:53 AM EDT Anthony Beebe presents for 3 month recheck. Medications & HM reviewed. Forgets to take meds a lot * Daysi Cormier LPN - 01/01/2024 7:48 AM EDT Anthony Beebe presents for 3 month recheck. Medications & HM reviewed. documented in this encounter Plan of Treatment Upcoming Encounters Date Type Department Care Team (Late st Contact Info) Description 01/19/2024 8:30 AM EDT Office Visit Orthopaedics [facility] [address] [place] [address] Rhianna Montes MD [address] [place] [address] 09/19/2024 7:40 AM EDT Office Visit Family Practice [facility] [address] [facility] [place] [address] Jolanta Roe MD [address] [facility] [place] [address] Pending Results Name Type Priority Associated Diagnoses Date /Time PSA Lab Routine Screening for prostate cancer 01/01/2024 8:32 AM EDT Scheduled Orders Name Type Priority Associated Diagnoses Orde r Schedule PSA Lab Routine Screening for prostate cancer Expected: 01/01/2024 (Approximate), Expires: 12/31/2024 LIPID PANEL WITH DIRECT LDL IF TG IS HIGH Lab Routine Mixed hyperlipidemia Expected: 09/26/2024 (Approximate), Expires: 12/31/2024 Scheduled Procedures Name Priority Associated Diagnoses Date/Ti me COLONOSCOPY FLEXIBLE PROXIMA L DIAGNOSTIC Recall Special screening for malignant neoplasm of colon Health Maintenance Due Date Last Done Comments HIV Screening 1980 Hepatitis C Screening 08/20/1983 Hepatitis B Vaccine (1 of 3 - 19+ 3-dose series) 1984 Cologuard 2010 Fecal Occult Blood Test 2010 Sigmoidoscopy 2010 Depression Screening 09/02/2022 09/02/2021 COVID-19 Vaccine ( season) 2023 Influenza Vaccine (FLU shot) (#1) 2024 05/09/2019 [...] as of this encounter Visit Diagnoses Diagnosis Mixed hyperlipidemia- Primary Class 1 obesity due to excess calories with serious comorbidity and body mass index (BMI) of 31.0 to 31.9 in adult Rotator cuff arthropathy of both shoulders Asymptomatic varicose veins of both lower extremities Asymptomatic varicose veins Screening for prostate cancer Special screening for malignant neoplasm of prostate documented in this encounter Care Teams Business Communications Instructor Relationship Specialty Start Date End Date Jolanta Roe MD [address] [place] [address] PCP - General Family Medicine 09/11/23 documented as of this encounter"
--- OUTSIDE RECORDS SUMMARY | 2024-04-04 21:33 | External Medical Summary | Summary of Care ---
Author Name Unknown Organization [facility] Address [address] [place] [address] Phone [phone] Care Team Providers Care Molding Supervisor Name Role Phone Jolanta Roe MD Primary Care Provider [phone] Reason for Visit * Reason Onset Date Comments TRIAGE 01/13/2024 PSA 16.39 Encounter Details Date Type Department Care Team (Late st Contact Info) Description 01/13/2024 Telephone Urology, [facility] [address] [place] [address] Services, Scheduling [address] [place] [address] TRIAGE (PSA 16.39) Allergies No known active allergiesdocumented as of this encounter (statuses as of 01/13/2024) Medications Medication Sig Dispensed Refills Start Date [...] as of this encounter (statuses as of 01/13/2024) Active Problems Problem Noted Date Diagnosed Date [...] as of this encounter (statuses as of 01/13/2024) Resolved Problems Problem Noted Date Diagnosed Date Resolved Date Aortic root enlargement 10/13/2018 04/2 12/2020 documented as of this encounter (statuses as of 01/13/2024) Immunizations Name Administration Dates Next Due Seasonal [...] encounter Miscellaneous Notes * Telephone Encounter - Nicole Hernández OSA - 01/13/2024 12:45 PM EDT Pt is scheduled for 01/12 at 2:45 pm * Telephone Encounter - Nicole Hernández OSA - 01/13/2024 10:25 AM EDT Lmom * Telephone Encounter - Jyoti Adams OSA - 01/13/2024 9:18 AM EDT Patient calling in to set up ref, elevated PSA , 16.39, wants [facility] office, please triage andcall to set up, thanks documented in this encounter Plan of Treatment Upcoming Encounters Date Type Department Care Team (Late st Contact Info) Description 01/13/2024 2:45 PM EDT Office Visit Urology, [facility] [address] [place] [address] Daniel Osei MD [address] [place] [address] 01/19/2024 8:30 AM EDT Office Visit Orthopaedics [facility] [address] [place] [address] Rhianna Montes MD [address] [place] [address] 09/19/2024 7:40 AM EDT Office Visit Family Practice [facility] [address] [place] [address] [address] Jolanta Roe MD [address] [place] [address] Scheduled Procedures Name Priority Associated Diagnoses Date/Ti [...] filedocumented as of this encounter Care Teams Molding Supervisor Relationship Specialty Start Date End Date Jolanta Roe MD [address] [place] [address] PCP - General Family Medicine 09/11/23 documented as of this encounter
--- OUTSIDE RECORDS SUMMARY | 2024-04-04 21:33 | External Medical Summary ---
Author Name Unknown Address Unknown Organization [facility] [address] [place] [address] Laboratory Report Ordering Provider Test Date Status ALEXANDRA HAWKINS 01/01/2024 08:32:09 Final Observation Date Value Abnormality Reference (Units ) Status PSA 01/01/2024 08:32:09 16.39 Above high normal <3 .10 (ng/mL) Final Performing Location [facility] - [address] [place] [address]
--- OUTSIDE RECORDS SUMMARY | 2024-04-04 21:33 | External Medical Summary | Summary of Care ---
Author Name Unknown Organization [facility] Address [address] [place] [address] Phone [phone] Care Team Providers Care Brine Well Operator Name Role Phone Jolanta Roe MD Primary Care Provider [phone] Reason for Visit * Reason Onset Date Comments Test Results 09/14/2023 Encounter Details Date Type Department Care Team (Late st Contact Info) Description 09/14/2023 Telephone Family Practice [facility] [address] [place] [address] Jolanta Roe MD [address] [place] [address] Test Results Allergies No known active allergiesdocumented as of this encounter (statuses as of 12/14/2023) Medications Medication Sig Dispensed Refills Start Date [...] as of this encounter (statuses as of 12/14/2023) Active Problems Problem Noted Date Diagnosed Date Class 1 obesity due to exces s calories with serious comorbidity and body mass index (BMI) of 31.0 to 31.9 in adult 09/11/2023 Rotator cuff arthropathy of both shoulders 09/10 Thoracic ascending aortic aneurysm 09/02/2021 H/O dysplastic nevus 09/06/2020 Overview: Mildly atypical nevus (R central upper back 09/2020) Mixed hyperlipidemia 05/09/2019 documented as of this encounter (statuses as of 12/14/2023) Resolved Problems Problem Noted Date Diagnosed Date Resolved Date Aortic root enlargement 10/13/2018 04/2 12/2020 documented as of this encounter (statuses as of 12/14/2023) Immunizations Name Administration Dates Next Due Seasonal [...] encounter Miscellaneous Notes * Telephone Encounter - An Neal DO - 09/21/2023 5:56 PM EDT Atorvastatin 10mg sent to pharmacy * Telephone Encounter - Criss Roberts LPN - 09/21/2023 1:22 PM EDT Pt is returning phone call. Is agreeable with starting cholesterol lowering medication. Pharmacy selected. Please advise. * Telephone Encounter - Criss Roberts LPN - 09/14/2023 10:24 AM EDT Patient aware and verbalized understanding, will think about it and then call back with his decision. * Telephone Encounter - Amparo Rodas LPN - 09/14/2023 8:45 AM EDT Called, left message for patient to return call. * Telephone Encounter - Amparo Rodas LPN - 09/14/2023 8:42 AM EDT ----- Message from Jolanta Roe MD sent at 09/13/2023 9:08 PM EDT ----- Please let patient know labs overall look good except cholesterol is high. I recommend starting a statin medication. If he is agreeable, I can send to pharmacy, or if he would like to discuss furtherplease make appt with me or any provider documented in this encounter Plan of Treatment Upcoming Encounters Date Type Department Care Team (Late st Contact Info) Description 12/15/2023 9:15 AM EDT Imaging Cardiac Studies, [facility] [address] [place] [address] 01/01/2024 8:00 AM EDT Office Visit Family Practice [facility] [address] [facility] [place] [address] Jolanta Roe MD [address] [facility] [place] [address] 01/19/2024 8:30 AM EDT Office Visit Orthopaedics [facility] [address] [place] [address] Rhianna Montes MD [address] [place] [address] Scheduled Procedures Name Priority Associated Diagnoses Date/Ti [...] 09/02/2022 09/02/2021 COVID-19 Vaccine ( - season) 2023 Influenza Vaccine (FLU shot) (#1) 2024 05/09/2019 Diabetes Screening 09/10/2026 09/11/2023, 0 09/11/2023, 09/10/2022, Additional history exists DTaP,Tdap,and Td Vaccines (2 - Td or Tdap) 05/05/2028 [...] filedocumented as of this encounter Care Teams Brine Well Operator Relationship Specialty Start Date End Date Jolanta Roe MD [address] [place] [address] PCP - General Family Medicine 09/11/23 documented as of this encounter
--- OUTSIDE RECORDS SUMMARY | 2024-04-04 21:33 | External Medical Summary | Summary of Care ---
Author Name Unknown Organization [facility] Address [address] [place] [address] Phone [phone] Care Team Providers Care Grain Distributor Name Role Phone Jolanta Roe MD Primary Care Provider [phone] Reason for Visit * Reason Comments Outpatient Testing Encounter Details Date Type Department Care Team (Late st Contact Info) Description 01/01/2024 8:30 AM EDT Laboratory Laboratory [facility] [address] [place] [id number] [facility] 200 [facility] [place] [address] Screening for prostate cancer Allergies No known [...] 01/19/2024 8:30 AM EDT Office Visit Orthopaedics [facility] [address] [place] [address] Rhianna Montes MD [address] [place] [address] 09/19/2024 7:40 AM EDT Office Visit Family Practice [facility] [address] [facility] [address] Jolanta Roe MD [address] [facility] [address] Pending Results Name Type Priority Associated Diagnoses Date /Time PSA Lab Routine Screening for prostate cancer 01/01/2024 8:32 AM EDT Scheduled Procedures Name Priority Associated Diagnoses Date/Ti [...] as of this encounter Visit Diagnoses Diagnosis Screening for prostate cancer Special screening for malignant neoplasm of prostate documented in this encounter Care Teams Grain Distributor Relationship Specialty Start Date End Date Jolanta Roe MD [address] [place] [address] PCP - General Family Medicine 09/11/23 documented as of this encounter
--- OUTSIDE RECORDS SUMMARY | 2024-04-04 21:33 | External Medical Summary | Summary of Care ---
Author Name Unknown Organization [facility] Address [address] [place] [address] Phone [phone] Care Team Providers Care Furnace Reliner Name Role Phone Jolanta Roe MD Primary Care Provider [phone] Reason for Visit * Reason Comments Re-Check Encounter Details Date Type Department Care Team (Late st Contact Info) Description 01/01/2024 8:00 AM EDT Office Visit Family Practice [facility] 200 [facility] [place] [address] Jolanta Roe MD [address] [place] [address] Mixed hyperlipidemia*; Class 1 obesity due to [...] 01/19/2024 8:30 AM EDT Office Visit Orthopaedics [facility] [address] [place] [address] Rhianna Montes MD [address] [place] [address] 09/19/2024 7:40 AM EDT Office Visit Family Practice [facility] [address] [facility] [place] [address] Jolanta Roe MD [address] [facility] [place] [address] Pending Results Name Type Priority Associated Diagnoses [...] prostate documented in this encounter Care Teams Furnace Reliner Relationship Specialty Start Date End Date Jolanta Roe MD [address] [place] [address] PCP - General Family Medicine 09/11/23 documented as of this encounter"
--- OUTSIDE RECORDS SUMMARY | 2024-04-04 21:33 | External Medical Summary | Summary of Care ---
Author Name Unknown Organization [facility] Address [address] [place] [address] Phone [phone] Care Team Providers Care Non Linear Editor Name Role Phone Jolanta Roe MD Primary Care Provider [phone] Reason for Referral * Evaluate & Treat - Unlimited Visits (Within 3 days (urgent)) - Authorized Specialty Diagnoses / Procedures Referred By Sofia smyth Referred To Contact Urology Diagnoses Elevated prostate specific antigen (PSA) Jolanta Roe MD [address] [place] [address] Referral ID Status Reason Start Date Expiration Date Visits Requested Visits Authorized [id number] Authorized Specialty Services Required 01/05/2024 999 999 [...] [facility] [address] [place] [address] [address] Jolanta Roe MD [address] [place] [address] [address] [address] Abnormal Test Results (Elevated PSA) Allergies No [...] encounter Miscellaneous Notes * Telephone Encounter - Milka Taylor LPN - 01/05/2024 2:52 PM EDT Patient calling back VU stated that she attempted to contact office Advised of Jolanta Roe MD's message. No further questions at this time. Please assist with scheduling Urology appt. * Telephone Encounter - Melba Beaulieu OSA - 01/05/2024 2:41 PM EDT Patient is returning Dr. Roe message about PSA. * Telephone Encounter - Jolanta Roe MD [...] 01/19/2024 8:30 AM EDT Office Visit Orthopaedics [facility] [address] [place] [address] Rhianna Montes MD [address] [place] [address] 09/19/2024 7:40 AM EDT Office Visit Family Practice [facility] 200 [facility] [place] [address] Jolanta Roe MD 200 [place] [address] Scheduled Procedures Name Priority Associated Diagnoses Date/Ti [...] Primary documented in this encounter Care Teams Non Linear Editor Relationship Specialty Start Date End Date Jolanta Roe MD [address] [place] [address] PCP - General Family Medicine 09/11/23 documented as of this encounter
--- OUTSIDE RECORDS SUMMARY | 2024-04-04 21:33 | External Medical Summary | Summary of Care ---
Author Name Unknown Organization [facility] Address [address] [place] [address] Phone [phone] Care Team Providers Care Brass Buffer Name Role Phone Jolanta Roe MD Primary Care Provider [phone] Encounter Details Date Type Department Care Team (Late st Contact Info) Description 10/26/2023 Orders Only Outcomes Research Department [address] [place] [address] Jody Sandy CHRA YAZUO Research Other*[id number] Allergies No known active allergiesdocumented as of this encounter (statuses as of 10/26/2023) Medications Medication Sig Dispensed Refills Start Date [...] as of this encounter (statuses as of 10/26/2023) Active Problems Problem Noted Date Diagnosed Date [...] as of this encounter (statuses as of 10/26/2023) Resolved Problems Problem Noted Date Diagnosed Date Resolved Date Aortic root enlargement 10/13/2018 04/2 12/2020 documented as of this encounter (statuses as of 10/26/2023) Immunizations Name Administration Dates Next Due Seasonal [...] Care Team (Late st Contact Info) Description 11/20/2023 8:45 AM EDT Cardiac Studies [facility], [facility] [place] [address] 12/15/2023 8:00 AM EDT Office Visit Family Practice [facility] 200 [facility] [place] [address] Jolanta Roe MD [address] [facility] [place] [address] 01/19/2024 8:30 AM EDT Office Visit Orthopaedics [facility] [address] [place] [address] Rhianna Montes MD [address] [place] [address] Scheduled Orders Name Type Priority Associated Diagnoses Orde r Schedule MY[facility] INITIAL ADULT Lab Routine [employer] Other*[id number] Expected: 10/26/2023 (Approximate), Expires: 11/14/2024 Scheduled Procedures Name Priority Associated Diagnoses Date/Ti me COLONOSCOPY FLEXIBLE PROXIMA L DIAGNOSTIC Recall Special screening for malignant neoplasm of colon Health Maintenance Due Date Last Done Comments HIV Screening 1980 Hepatitis C Screening 08/20/1983 Hepatitis B (1 of 3 - 19+ 3-dose series) 1984 Cologuard 2010 Fecal Occult Blood Test 2010 Sigmoidoscopy 2010 Depression Screening 09/02/2022 09/02/2021 COVID-19 Vaccine ( season) 2023 Influenza Vaccine (FLU shot) (Season Ended) 2024 05/09/2019 Diabetes Screening 09/10/2026 09/11/2023, 0 09/11/2023, 09/10/2022, Additional history exists DTaP,Tdap,and Td Vaccines (2 - Td or Tdap) 05/05/2028 05/05/2018 Colonoscopy 06/28/2028 06/28/2018, 06/28/2018 Colorectal Cancer Screening 06/28/2028 Lipid Panel 09/10/2028 09/11/2023, 09/01, 05/09/2019, Additional history exists Zoster Vaccines Completed 07/26/2019, 05/09/2019 GARDASIL-HPV IMMUNIZATION SERIES Aged Out No longer eligible based on [...] as of this encounter Visit Diagnoses Diagnosis [employer] Other*[id number] documented in this encounter Care Teams Brass Buffer Relationship Specialty Start Date End Date Jolanta Roe MD [address] [place] [address] PCP - General Family Medicine 09/11/23 documented as of this encounter
--- OUTSIDE RECORDS SUMMARY | 2024-04-04 21:33 | External Medical Summary | Summary of Care ---
Author Name Unknown Organization [facility] Address [address] [place] [address] Phone [phone] Care Team Providers Care Endless Track Vehicle Mechanic Name Role Phone Jolanta Roe MD Primary Care Provider [phone] Reason for Visit * Reason Comments Follow Up Bilateral shoulder Pain Encounter Details Date Type Department Care Team (Late st Contact Info) Description 01/19/2024 8:30 AM EDT Office Visit Orthopaedics [facility] [address] [place] [address] Rhianna Montes MD [address] [place] [address] Rotator cuff arthropathy of both shoulders* Allergies [...] Info) Description 02/04/2024 12:30 PM EDT Imaging [facility], a service of [facility] [address] [place] [address] 03/23/2024 11:45 AM EST Office Visit Urology, [facility] [address] [facility] [place] [address] Daniel Osei MD [address] [place] [address] 05/24/2024 9:00 AM EST Office Visit Orthopaedics [facility] [address] [place] [address] Rhianna Montes MD [address] [place] [address] 09/19/2024 7:40 AM EDT Office Visit Family Practice [facility] 200 [facility] [place] [address] Jolanta Roe MD [address] [facility] [place] [address] Scheduled Procedures Name Priority Associated Diagnoses Date/Ti [...] Left documented in this encounter Care Teams Endless Track Vehicle Mechanic Relationship Specialty Start Date End Date Jolanta Roe MD 200 [place] [address] PCP - General Family Medicine 09/11/23 documented as of this encounter
--- OUTSIDE RECORDS SUMMARY | 2024-04-04 21:33 | External Medical Summary | Summary of Care ---
Author Name Unknown Organization [facility] Address [address] [place] [address] Phone [phone] Care Team Providers Care Heel Cementer Name Role Phone Jolanta Roe MD Primary Care Provider [phone] Reason for Referral * Evaluate & Treat - Unlimited Visits (Within 3 days (urgent)) - Authorized Specialty Diagnoses / Procedures Referred By Sofia smyth Referred To Contact Urology Diagnoses Elevated prostate specific antigen (PSA) Jolanta Roe MD [address] [place] [address] Referral ID Status Reason Start Date Expiration Date Visits Requested Visits Authorized [id number] Authorized Specialty Services Required 01/05/2024 999 999 [...] State Av [address] [place] [address] Jolanta Roe MD [address] [place] [address] Abnormal Test Results (Elevated PSA) Allergies No [...] encounter Miscellaneous Notes * Telephone Encounter - Melba Beaulieu OSA [...] Lab Results Component Value Date/Time PSA - KEITH 16.39 (H) 01/01/2024 08:32 AM documented in this encounter Plan of Treatment Upcoming Encounters Date Type Department Care Team (Late st Contact Info) Description 01/19/2024 8:30 AM EDT Office Visit Orthopaedics [facility] [address] [place] [address] Rhianna Montes MD [address] [place] [address] 09/19/2024 7:40 AM EDT Office Visit Family Practice [facility] [address] [facility] [place] [address] Jolanta Roe MD [address] [facility] [place] [address] Scheduled Procedures Name Priority Associated Diagnoses Date/Ti [...] Primary documented in this encounter Care Teams Heel Cementer Relationship Specialty Start Date End Date Jolanta Roe MD [address] [place] [address] PCP - General Family Medicine 09/11/23 documented as of this encounter
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
[2024-04-04] MEDS: ACETAMINOPHEN 500 MG TAB PO SCH (22:33)
[2024-04-04] MEDS: ceFAZolin 2000MG 2,000 MG/15 ML SYR IV SCH (22:33)
[2024-04-04 22:44] VITALS: RESP 16
[2024-04-05] MEDS ORDERED: ceFAZolin 3000MG 3,000 MG/72.5 ML BAG IV SCH (06:00)
[2024-04-05 07:44] VITALS: TEMP 97.7; O2SAT 96
[2024-04-05] MEDS: ATORVASTATIN 10 MG TAB PO SCH (07:57)
[2024-04-05] MEDS: MULTIVITAMIN TAB PO SCH (07:58)
[2024-04-05 11:33] VITALS: BP 134/79; PULSE 62
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
--- NOTE | 2024-04-07 14:59 | Electrocardiogram Report ---
Test Reason : Blood Pressure : */* mmHG Vent. Rate : 74 BPM Atrial Rate : 74 BPM P-R Int : 132 ms QRS Dur : 108 ms QT Int : 368 ms P-R-T Axes : 47 23 11 degrees QTcB Int : 408 ms Normal sinus rhythm Normal ECG No previous ECGs available Confirmed by Sabino Campbell ([id number]) on 04/07/2024 2:58:36 PM Referred By: REFERRED SELF Confirmed By: Sabino Campbell
== END 2024-04-05 12:56 | disposition home or self-care (01) | DRG 505 ==
LOC: ED 10:53 → OR 13:44 → 3E 15:35